=== PATIENT | male | born 1960 | race Two or more races ===

== ENCOUNTER 2024-04-12 17:34 | Inpatient (IN) | payer MEDICARE, MEDICAID ==
[~2024-04-12] VITALS: Ht 180.3 cm; Wt 108.9 kg
[2024-04-12] MEDS: DEXT 5%/0.45% NACL 1000ML 1,000 ML IV SCH (04:30)
[2024-04-12] MEDS: SODIUM CHLORIDE 0.9% 1,000 ML IV ONE (18:32)
[2024-04-12 18:46] LABS: BASOPHILS % 0.8 % (0.0-2.0); EOSINOPHILS % 0.4 % (0.0-5.0); HEMATOCRIT. 24.8 % (42.0-52.0); HEMOGLOBIN. 8.2 g/dL (14.0-18.0); LYMPHOCYTES % 24.3 % (20.0-50.0); MEAN CORPUSCULAR HEMOGLOBIN 31.4 pg (28.0-32.0); MEAN CORPUSCULAR VOLUME 95.4 fL (80.0-94.0); MEAN PLATELET VOLUME 10.9 fl (7.4-10.4); MONOCYTES % 8.2 % (2.0-8.0); NEUTROPHILS % 66.3 % (40.0-76.0); PLATELET 126 x1000/uL (130-400)
[2024-04-12 18:49] LABS: CHLORIDE 106 mEq/L (98-107); POTASSIUM 5.6 mEq/L (3.5-5.1); SODIUM 134 mEq/L (136-145)
[2024-04-12 18:50] LABS: CALCIUM 8.6 mg/dL (8.7-10.4); CARBON DIOXIDE 18 mEq/L (21-32)
[2024-04-12] MEDS: PANTOPRAZOLE SODIUM 40 MG/VIAL IV ONE (18:50)
[2024-04-12] MEDS: ONDANSETRON HCL 4MG/2ML INJ IV ONE (18:50)
[2024-04-12 18:55] LABS: CREATININE 0.9 mg/dL (0.6-1.3); GLUCOSE 341 mg/dL (70-105); TROPONIN I HIGH SENSITIVITY 6 ng/L (3.0-53); UREA NITROGEN BLOOD 37 mg/dL (9-23)
[2024-04-12 21:00] VITALS: BP 125/65; PULSE 96; RESP 19; TEMP 36.1956
[2024-04-12] MEDS ORDERED: ONDANSETRON HCL 4MG/2ML INJ IV PRN (21:15)
[2024-04-12] MEDS ORDERED: NA PHOS,M-B/NA PHOS,DI-BA ENEMA 118ML PR PRN (21:15)
[2024-04-12] MEDS ORDERED: SODIUM CHLORIDE 0.9% 500 ML IV SCH (21:15)
[2024-04-12] MEDS ORDERED: CLONIDINE 0.1MG TABLET PO PRN (21:15)
[2024-04-12] MEDS ORDERED: DOCUSATE SODIUM 100MG CAPSULE PO PRN (21:15)
[2024-04-12] MEDS ORDERED: LEVOFLOXACIN 500MG PREMIX 100 ML IV SCH (21:15)
[2024-04-12] MEDS ORDERED: ACETAMINOPHEN 325MG TABLET PO PRN ×2 (21:15)
[2024-04-12] MEDS ORDERED: DEXTROSE 50% WATER 50ML SYRINGE IV PRN (21:45)
[2024-04-12] MEDS ORDERED: NALOXONE HCL 0.4MG/ML VIAL IV PRN (22:00)
[2024-04-12] MEDS ORDERED: ALBUTEROL (0.083%) 2.5MG/3ML NEB HHN NR (22:15)
[2024-04-12] MEDS: BLOOD SUGAR DIAGNOSTIC STRIP TEST SCH (22:30)
[2024-04-13] VITALS (10 sets, daily range): BP systolic 91–150; BP diastolic 49–99; PULSE 96–127; RESP 16–26; TEMP 36.16956–37.11408; O2SAT 97–100
[2024-04-13] MEDS: SODIUM CHLORIDE 0.9% 1,000 ML IV ONE (01:44)
[2024-04-13] MEDS: SODIUM BICARBONATE 8.4% 50MEQ/50ML SYR IV NR (02:11)
[2024-04-13] MEDS: CALCIUM CHLORIDE 1GM/10ML SYR IV NR (02:20)
[2024-04-13] MEDS: SODIUM POLYSTYRENE SULFONATE 15 G/60 ML BOT PO NR (02:20)
[2024-04-13] MEDS: DEXTROSE 50% WATER 50ML SYRINGE IV NR (02:36)
[2024-04-13] MEDS: INSULIN REGULAR (HUMULIN R) 1000UNITS/10ML VIAL IV NR (04:46)
[2024-04-13] MEDS: INSULIN LISPRO 100 UNITS/ML SUBCUT SCH ×2 (05:13→09:38)
[2024-04-13 06:25] LABS: CHLORIDE 111 mEq/L (98-107); POTASSIUM 3.8 mEq/L (3.5-5.1); SODIUM 139 mEq/L (136-145)
[2024-04-13 06:26] LABS: CALCIUM 8.1 mg/dL (8.7-10.4); CARBON DIOXIDE 18 mEq/L (21-32)
[2024-04-13 06:31] LABS: CREATININE 0.9 mg/dL (0.6-1.3); GLUCOSE 309 mg/dL (70-105); UREA NITROGEN BLOOD 30 mg/dL (9-23)
[2024-04-13 07:34] LABS: BASOPHILS % 0.7 % (0.0-2.0); DIFFERENTIAL COMMENT 0; EOSINOPHILS % 3.1 % (0.0-5.0); LYMPHOCYTES % 35.4 % (20.0-50.0); MEAN CORPUSCULAR HEMOGLOBIN 32.7 pg (28.0-32.0); MEAN CORPUSCULAR HGB CONC 33.7 g/dL (31.0-37.0); MEAN CORPUSCULAR VOLUME 97.1 fL (80.0-94.0); MEAN PLATELET VOLUME 10.5 fl (7.4-10.4); NEUTROPHILS % 58.8 % (40.0-76.0); PLATELET 107 x1000/uL (130-400); RED CELL DISTRIBUTION WIDTH 16.4 % (11.6-14.6); WHITE BLOOD COUNT 7.8 x1000/uL (4.5-11.0)
[2024-04-13] MEDS: IPRATROPIUM/ALBUTEROL 0.5-3(2.5)MG/3ML NEB HHN SCH (08:38)
[2024-04-13 08:42] LABS: HEMATOCRIT. 20.4 % (42.0-52.0); HEMOGLOBIN. 6.9 g/dL (14.0-18.0)
[2024-04-13] MEDS: VANCOMYCIN 1GM/200ML PMX (BAXTER) IV SCH (09:36)
[2024-04-13] MEDS: INSULIN GLARGINE 100 UNITS/ML SUBCUT SCH ×2 (09:39→22:18)
[2024-04-13] MEDS: CEFTRIAXONE 1GM/50ML 50 ML IV SCH (09:59)
[2024-04-13] MEDS: PANTOPRAZOLE SODIUM 40 MG/VIAL IV SCH ×2 (09:59→22:20)
[2024-04-13] MEDS: INFLUENZA VACCINE 05/PF 0.5 ML SYRINGE IM ONE (10:00)
[2024-04-13] MEDS: AZITHROMYCIN 500MG/250ML 250 ML IV SCH (11:15)
[2024-04-13] MEDS: HYDROCODONE/ACETAMINOPHEN 5/325MG TABLET PO PRN (13:13)
[2024-04-13] MEDS: HALOPERIDOL LACTATE 5MG/ML VIAL IM NR ×2 (15:03→17:20)
[2024-04-13] MEDS ORDERED: OCTREOTIDE 1,000 MCG in SODIUM CHLORIDE 0.9% 98 ML IV SCH (16:00)
[2024-04-13] MEDS: DIPHENHYDRAMINE 50MG/ML VIAL IV NR (17:19)
[2024-04-13] MEDS: QUETIAPINE FUMARATE 200MG TABLET PO SCH (17:20)
[2024-04-13 18:38] LABS: ALANINE AMINOTRANSFERASE 81 IU/L (10-49); ALBUMIN 2.6 g/dL (3.2-4.8); ASPARTATE AMINOTRANSFERASE 133 IU/L (<34); BILIRUBIN DIRECT 1.4 mg/dL (<=3.0)
[2024-04-13 18:39] LABS: AMMONIA 71 uMol/L (<32); BILIRUBIN TOTAL 2.4 mg/dL (0.1-1.0); PROTEIN TOTAL 5.8 g/dL (6.0-8.3)
[2024-04-13 18:40] LABS: FOLIC ACID (FOLATE) SERUM > 20.00 ng/mL (>5.38)
[2024-04-13] MEDS: LACTULOSE 20G/30ML UDC PO SCH (22:00)
[2024-04-13] MEDS: GUAIFENESIN 200MG/10ML SUGAR FREE UDC PO PRN (23:21)
[2024-04-14] VITALS (11 sets, daily range): BP systolic 108–136; BP diastolic 68–84; PULSE 102–116; RESP 16–20; TEMP 36.33624–37.11408; O2SAT 98–100
[2024-04-14 08:15] LABS: INR 1.3; PROTHROMBIN TIME 14.5 sec (9.6-11.0)
[2024-04-14 08:35] LABS: CHLORIDE 111 mEq/L (98-107); POTASSIUM 3.4 mEq/L (3.5-5.1); SODIUM 140 mEq/L (136-145)
[2024-04-14 08:37] LABS: CALCIUM 7.8 mg/dL (8.7-10.4); CARBON DIOXIDE 22 mEq/L (21-32)
[2024-04-14 08:41] LABS: IRON 33 ug/dL (65-175)
[2024-04-14 08:42] LABS: CREATININE 0.8 mg/dL (0.6-1.3); GLUCOSE 194 mg/dL (70-105); UREA NITROGEN BLOOD 21 mg/dL (9-23)
[2024-04-14 08:43] LABS: ALANINE AMINOTRANSFERASE 66 IU/L (10-49); PROTEIN TOTAL 5.3 g/dL (6.0-8.3)
[2024-04-14 08:44] LABS: ALBUMIN 2.5 g/dL (3.2-4.8); ASPARTATE AMINOTRANSFERASE 107 IU/L (<34); BILIRUBIN TOTAL 2.3 mg/dL (0.1-1.0)
[2024-04-14 08:45] LABS: TOTAL IRON BINDING CAPACITY 247 ug/dl (250-425)
[2024-04-14 08:46] LABS: FERRITIN 99 ng/mL (22-322)
[2024-04-14 08:47] LABS: VITAMIN B12 SERUM 787 pg/mL (211-911)
[2024-04-14 09:03] LABS: BASOPHILS % 0.8 % (0.0-2.0); EOSINOPHILS % 4.9 % (0.0-5.0); HEMATOCRIT. 21.2 % (42.0-52.0); HEMOGLOBIN. 7.2 g/dL (14.0-18.0); LYMPHOCYTES % 26.8 % (20.0-50.0); MEAN CORPUSCULAR HEMOGLOBIN 31.6 pg (28.0-32.0); MEAN CORPUSCULAR HGB CONC 33.8 g/dL (31.0-37.0); MEAN CORPUSCULAR VOLUME 93.6 fL (80.0-94.0); MEAN PLATELET VOLUME 10.3 fl (7.4-10.4); MONOCYTES % 9.4 % (2.0-8.0); NEUTROPHILS % 58.1 % (40.0-76.0); PLATELET 93 x1000/uL (130-400); RED BLOOD CELL COUNT 2.27 mill/uL (4.7-6.1); RED CELL DISTRIBUTION WIDTH 15.8 % (11.6-14.6); WHITE BLOOD COUNT 6.1 x1000/uL (4.5-11.0)
[2024-04-14] MEDS: DIPHENHYDRAMINE 50MG/ML VIAL IV PRN (13:03)
[2024-04-14 19:02] LABS: HEMATOCRIT 25.9 % (42.0-52.0); HEMOGLOBIN 8.6 g/dL (14.0-18.0)
[2024-04-14 19:15] LABS: TRIGLYCERIDE 93 mg/dL (0-150)
[2024-04-14 19:16] LABS: LDL CHOLESTEROL 54 mg/dL (5-100)
[2024-04-14 19:17] LABS: CHOLESTEROL 98 mg/dL (<200); HDL CHOLESTEROL < 20 mg/dL (>55)
[2024-04-14] MEDS: QUETIAPINE FUMARATE 200MG TABLET PO SCH (21:00)
[2024-04-14] MEDS: QUETIAPINE FUMARATE 50MG TABLET PO SCH (21:00)
[2024-04-14 21:55] LABS: HEMOGLOBIN 8.7 g/dL (14.0-18.0)
[2024-04-15] VITALS: BP 130/84; PULSE 109; RESP 20; TEMP 36.33624; O2SAT 98
[2024-04-15 04:00] VITALS: BP 125/78; PULSE 86; RESP 20; TEMP 36.72516; O2SAT 96
[2024-04-15 06:35] LABS: CHLORIDE 113 mEq/L (98-107); POTASSIUM 3.5 mEq/L (3.5-5.1); SODIUM 141 mEq/L (136-145)
[2024-04-15 06:38] LABS: CARBON DIOXIDE 21 mEq/L (21-32)
[2024-04-15 06:39] LABS: CALCIUM 7.8 mg/dL (8.7-10.4)
[2024-04-15 06:43] LABS: CREATININE 0.7 mg/dL (0.6-1.3); GLUCOSE 98 mg/dL (70-105)
[2024-04-15 06:44] LABS: UREA NITROGEN BLOOD 14 mg/dL (9-23)
[2024-04-15 06:45] LABS: ALANINE AMINOTRANSFERASE 73 IU/L (10-49); ALBUMIN 2.5 g/dL (3.2-4.8); ASPARTATE AMINOTRANSFERASE 127 IU/L (<34)
[2024-04-15 06:46] LABS: BILIRUBIN TOTAL 2.3 mg/dL (0.1-1.0); PROTEIN TOTAL 5.4 g/dL (6.0-8.3)
[2024-04-15 07:40] LABS: BASOPHILS % 0.6 % (0.0-2.0); EOSINOPHILS % 8.5 % (0.0-5.0); HEMATOCRIT. 23.8 % (42.0-52.0); HEMOGLOBIN. 8.1 g/dL (14.0-18.0); LYMPHOCYTES % 29.4 % (20.0-50.0); MEAN CORPUSCULAR VOLUME 94.1 fL (80.0-94.0); MONOCYTES % 8.5 % (2.0-8.0); PLATELET 94 x1000/uL (130-400); RED BLOOD CELL COUNT 2.53 mill/uL (4.7-6.1); RED CELL DISTRIBUTION WIDTH 15.6 % (11.6-14.6); WHITE BLOOD COUNT 5.9 x1000/uL (4.5-11.0)
[2024-04-15 08:00] VITALS: BP 119/75; PULSE 97; RESP 18; TEMP 36.33624; O2SAT 98
[2024-04-15] MEDS: IOHEXOL-300 100 ML BOTTLE ONE (08:37)
[2024-04-15] MEDS: GABAPENTIN 300MG CAPSULE PO SCH (10:16)
[2024-04-15 12:00] VITALS: BP 112/74; PULSE 97; RESP 18; TEMP 36.33624; O2SAT 99
[2024-04-15] MEDS: AZITHROMYCIN 500MG/250ML 250 ML IV SCH (12:00)
[2024-04-15] MEDS: HALOPERIDOL LACTATE 5MG/ML VIAL IM NR (14:00)
[2024-04-15] MEDS ORDERED: GABAPENTIN 300MG CAPSULE PO SCH (14:00)
[2024-04-15 16:00] VITALS: BP 109/59; PULSE 92; RESP 18; TEMP 36.33624; O2SAT 98
[2024-04-15 20:05] VITALS: BP 107/69; PULSE 99; RESP 16; TEMP 36.50292; O2SAT 100
[2024-04-16] VITALS (7 sets, daily range): BP systolic 98–127; BP diastolic 48–85; PULSE 87–97; RESP 16–20; TEMP 36.16956–36.6696; O2SAT 93–99
[2024-04-16 06:03] LABS: INR 1.2; PROTHROMBIN TIME 13.2 sec (9.6-11.0)
[2024-04-16 06:05] LABS: BASOPHILS % 0.8 % (0.0-2.0); EOSINOPHILS % 10.9 % (0.0-5.0); HEMATOCRIT. 25.2 % (42.0-52.0); HEMOGLOBIN. 8.5 g/dL (14.0-18.0); LYMPHOCYTES % 33.3 % (20.0-50.0); MEAN CORPUSCULAR HEMOGLOBIN 31.9 pg (28.0-32.0); MEAN CORPUSCULAR HGB CONC 33.8 g/dL (31.0-37.0); MEAN CORPUSCULAR VOLUME 94.5 fL (80.0-94.0); MEAN PLATELET VOLUME 10.4 fl (7.4-10.4); MONOCYTES % 10.6 % (2.0-8.0); NEUTROPHILS % 44.4 % (40.0-76.0); PLATELET 89 x1000/uL (130-400); RED BLOOD CELL COUNT 2.67 mill/uL (4.7-6.1); RED CELL DISTRIBUTION WIDTH 15.6 % (11.6-14.6); WHITE BLOOD COUNT 4.9 x1000/uL (4.5-11.0)
[2024-04-16 06:18] LABS: CHLORIDE 113 mEq/L (98-107); POTASSIUM 3.6 mEq/L (3.5-5.1); SODIUM 141 mEq/L (136-145)
[2024-04-16 06:19] LABS: CARBON DIOXIDE 20 mEq/L (21-32)
[2024-04-16 06:20] LABS: CALCIUM 7.9 mg/dL (8.7-10.4)
[2024-04-16 06:24] LABS: CREATININE 0.7 mg/dL (0.6-1.3); GLUCOSE 115 mg/dL (70-105)
[2024-04-16 06:25] LABS: UREA NITROGEN BLOOD 11 mg/dL (9-23)
[2024-04-16 06:26] LABS: ALANINE AMINOTRANSFERASE 69 IU/L (10-49); ALBUMIN 2.5 g/dL (3.2-4.8); ASPARTATE AMINOTRANSFERASE 116 IU/L (<34)
[2024-04-16 06:27] LABS: BILIRUBIN TOTAL 1.8 mg/dL (0.1-1.0); PROTEIN TOTAL 5.5 g/dL (6.0-8.3)
[2024-04-16] MEDS ORDERED: HALOPERIDOL LACTATE 5MG/ML VIAL IM PRN (09:00)
[2024-04-16 09:10] LABS: CLARITY URINE CLEAR (CLEAR); COLOR URINE DARK YELLOW (YELLOW); GLUCOSE URINE TRACE (NEGATIVE); KETONES URINE NEGATIVE (NEGATIVE); LEUKOCYTE ESTERASE URINE NEGATIVE (NEGATIVE); NITRITE URINE NEGATIVE (NEGATIVE); OCCULT BLOOD URINE NEGATIVE (NEGATIVE); PH URINE 6.5 (4.5-8.0); PROTEIN URINE NEGATIVE (NEGATIVE); SPECIFIC GRAVITY URINE 1.007 (1.005-1.030)
[2024-04-16 09:44] LABS: BACTERIA URINE NONE SEEN; RBC URINE NONE SEEN /hpf (0-2); SQUAMOUS EPITHELIAL CELL URINE NONE SEEN /lpf (RARE/1+); WBC URINE 0-2 /hpf (0-2); YEAST URINE NONE SEEN
[2024-04-16] MEDS ORDERED: EPHEDRINE SULFATE 50MG/ML VIAL ONE (13:16)
[2024-04-16] MEDS ORDERED: PROPOFOL 200MG/20ML VIAL IV ONE ×2 (13:16→13:43)
[2024-04-16] MEDS ORDERED: HYDROMORPHONE HCL/PF 1MG/ML INJ IV PRN (14:30)
[2024-04-16] MEDS ORDERED: ONDANSETRON HCL 4MG/2ML INJ IV PRN (14:30)
[2024-04-16] MEDS: PNEUMOCOCCAL 20-VAL CONJ-DIP CRM 0.5ML IM ONE (16:33)
[2024-04-16] MEDS: SUCRALFATE 1G TABLET PO SCH (16:41)
[2024-04-16] MEDS: CARVEDILOL 3.125 MG TABLET PO SCH (21:56)
[2024-04-17] VITALS (9 sets, daily range): BP systolic 92–122; BP diastolic 60–80; PULSE 82–94; RESP 16–20; TEMP 36.55848–37.2; O2SAT 97–100
[2024-04-17 07:12] LABS: CHLORIDE 110 mEq/L (98-107); POTASSIUM 3.8 mEq/L (3.5-5.1); SODIUM 138 mEq/L (136-145)
[2024-04-17 07:13] LABS: CARBON DIOXIDE 21 mEq/L (21-32)
[2024-04-17 07:18] LABS: CREATININE 0.7 mg/dL (0.6-1.3); GLUCOSE 159 mg/dL (70-105); UREA NITROGEN BLOOD 9 mg/dL (9-23)
[2024-04-17 07:20] LABS: ALANINE AMINOTRANSFERASE 65 IU/L (10-49); ALBUMIN 2.6 g/dL (3.2-4.8); ASPARTATE AMINOTRANSFERASE 105 IU/L (<34)
[2024-04-17 07:21] LABS: BILIRUBIN TOTAL 1.6 mg/dL (0.1-1.0); PROTEIN TOTAL 5.7 g/dL (6.0-8.3)
[2024-04-17 07:31] LABS: HEPATITIS B SURFACE ANTIGEN NEGATIVE (Negative)
[2024-04-17 07:52] LABS: HEPATITIS A AB IGM NEGATIVE (Negative)
[2024-04-17 07:53] LABS: HEPATITIS B CORE AB IGM NEGATIVE (Negative); HEPATITIS C AB REACTIVE (Pos) (Negative)
[2024-04-17 08:11] LABS: BASOPHILS % 1.2 % (0.0-2.0); EOSINOPHILS % 10.4 % (0.0-5.0); HEMATOCRIT. 27.7 % (42.0-52.0); HEMOGLOBIN. 9.2 g/dL (14.0-18.0); LYMPHOCYTES % 29.1 % (20.0-50.0); MEAN CORPUSCULAR HEMOGLOBIN 32.1 pg (28.0-32.0); MEAN CORPUSCULAR HGB CONC 33.2 g/dL (31.0-37.0); MEAN CORPUSCULAR VOLUME 96.8 fL (80.0-94.0); MEAN PLATELET VOLUME 10.3 fl (7.4-10.4); MONOCYTES % 9.1 % (2.0-8.0); NEUTROPHILS % 50.2 % (40.0-76.0); PLATELET 97 x1000/uL (130-400); RED BLOOD CELL COUNT 2.86 mill/uL (4.7-6.1); RED CELL DISTRIBUTION WIDTH 16.2 % (11.6-14.6); WHITE BLOOD COUNT 4.5 x1000/uL (4.5-11.0)
[2024-04-17] MEDS ORDERED: COR3 PO (13:37)
[2024-04-17] MEDS ORDERED: OMEP20CA14 MT (13:37)
[2024-04-17] MEDS ORDERED: GABA-1180 PO (13:37)
[2024-04-17] MEDS ORDERED: QUET200T30 PO (13:37)
[2024-04-17] MEDS ORDERED: QUET50TA PO (13:37)
[2024-04-17] MEDS ORDERED: SUCR1TAB PO (13:37)
[2024-04-18] VITALS (7 sets, daily range): BP systolic 94–126; BP diastolic 52–78; PULSE 80–92; RESP 18–20; TEMP 36.4–36.9; O2SAT 94–100
== END 2024-04-18 18:00 | DRG 871 ==
LOC: ER 17:34 → 5WST 19:19 → EDBEDREQTM 19:45 → EDBEDREQ 19:45 → 5WST 04-13 15:00
PROVIDERS: ADMIT Hospitalist; ATTEND Hospitalist
PROC: 30233N1 Transfusion of Nonautologous Red Blood Cells into Peripheral Vein, Percutaneous Approach (ICD-10-PCS; principal; 2024-04-13)
PROC: 0DB78ZX Excision of Stomach, Pylorus, Via Natural or Artificial Opening Endoscopic, Diagnostic (ICD-10-PCS; 2024-04-16)
PROC: 06L38CZ Occlusion of Esophageal Vein with Extraluminal Device, Via Natural or Artificial Opening Endoscopic (ICD-10-PCS; 2024-04-16)
DX: A41.9 Sepsis, unspecified organism (principal); J18.9 Pneumonia, unspecified organism; K29.31 Chronic superficial gastritis with bleeding; D62 Acute posthemorrhagic anemia; E87.1 Hypo-osmolality and hyponatremia; E46 Unspecified protein-calorie malnutrition; I85.10 Secondary esophageal varices without bleeding; K76.6 Portal hypertension; I11.0 Hypertensive heart disease with heart failure; K59.00 Constipation, unspecified; I50.9 Heart failure, unspecified; F20.9 Schizophrenia, unspecified; E11.51 Type 2 diabetes mellitus with diabetic peripheral angiopathy without gangrene; E87.5 Hyperkalemia; D53.9 Nutritional anemia, unspecified; D69.6 Thrombocytopenia, unspecified; B19.20 Unspecified viral hepatitis C without hepatic coma; D63.8 Anemia in other chronic diseases classified elsewhere; K31.89 Other diseases of stomach and duodenum; K74.60 Unspecified cirrhosis of liver; Z96.642 Presence of left artificial hip joint; E11.65 Type 2 diabetes mellitus with hyperglycemia; E80.6 Other disorders of bilirubin metabolism; Z68.33 Body mass index [BMI] 33.0-33.9, adult; Z78.1 Physical restraint status; Z79.4 Long term (current) use of insulin; Z87.11 Personal history of peptic ulcer disease; Z79.899 Other long term (current) drug therapy; Z87.311 Personal history of (healed) other pathological fracture; Z88.8 Allergy status to other drugs, medicaments and biological substances
CPT/HCPCS: 36415; 71045; 74177; 76700; 80048; 80053; 80061; 80076; 81003; 82140; 82607; 82728; 82746; 82962; 83036; 83540; 83550; 83605; 83735; 83880; 84100; 84145; 84484; 85014; 85018; 85025; 85044; 86705; 86709; 86850; 86900; 86920; 87340; 88305; 88312; 88313; 90732; 93005; 94070; 94640; 94664; 97166; 98960; 99285; A4606; A4663; J0456; J0696; J1200; J1630; J1815; J2354; J2405; J2470; J2704; J3490; J7030; J7050; P9016; Q9967

== ENCOUNTER 2024-07-09 23:34 | Inpatient (IN) | payer MEDICARE, MEDICAID ==
[~2024-07-09] VITALS: Ht 182.9 cm; Wt 118.0 kg
[~2024-07-09 23:34] MED LIST: COR3 PO; GABA-1180 PO; OMEP20CA14 MT; QUET200T30 PO; SUCR1TAB PO
[2024-07-10] MEDS: SODIUM CHLORIDE 0.9% 1,000 ML IV ONE ×2 (00:12→05:14)
[2024-07-10] MEDS: PIPERACILLIN/TAZO 3.375G/50ML 50 ML IV ONE (00:14)
[2024-07-10 00:20] LABS: BASOPHILS % 1.5 % (0.0-2.0); EOSINOPHILS % 0.2 % (0.0-5.0); HEMATOCRIT. 25.4 % (42.0-52.0); HEMOGLOBIN. 7.9 g/dL (14.0-18.0); LYMPHOCYTES % 15.4 % (20.0-50.0); MEAN CORPUSCULAR HEMOGLOBIN 19.9 pg (28.0-32.0); MEAN CORPUSCULAR HGB CONC 31.3 g/dL (31.0-37.0); MEAN CORPUSCULAR VOLUME 63.6 fL (80.0-94.0); MEAN PLATELET VOLUME 9.2 fl (7.4-10.4); MONOCYTES % 8.9 % (2.0-8.0); PLATELET 156 x1000/uL (130-400); RED BLOOD CELL COUNT 3.99 mill/uL (4.7-6.1); RED CELL DISTRIBUTION WIDTH 22.6 % (11.6-14.6); WHITE BLOOD COUNT 12.6 x1000/uL (4.5-11.0)
[2024-07-10] MEDS: ACETAMINOPHEN 1000MG/100ML 100 ML IV ONE (00:21)
[2024-07-10 00:25] LABS: DIFFERENTIAL COMMENT 1
[2024-07-10 00:26] LABS: ADD RBC MORPHOLOGY YES
[2024-07-10 00:33] LABS: INR 1.3
[2024-07-10 00:48] LABS: CHLORIDE 101 mEq/L (98-107); POTASSIUM 4.1 mEq/L (3.5-5.1); SODIUM 127 mEq/L (136-145)
[2024-07-10 00:49] LABS: CARBON DIOXIDE 20 mEq/L (21-32)
[2024-07-10 00:50] LABS: CALCIUM 8.2 mg/dL (8.7-10.4)
[2024-07-10 00:54] LABS: CREATININE 0.9 mg/dL (0.6-1.3); GLUCOSE 275 mg/dL (70-105); UREA NITROGEN BLOOD 12 mg/dL (9-23)
[2024-07-10 00:56] LABS: ALANINE AMINOTRANSFERASE 40 IU/L (10-49); ALBUMIN 2.8 g/dL (3.2-4.8); ASPARTATE AMINOTRANSFERASE 65 IU/L (<34)
[2024-07-10 00:57] LABS: BILIRUBIN DIRECT 1.2 mg/dL (<=3.0); BILIRUBIN TOTAL 2.1 mg/dL (0.1-1.0); PROTEIN TOTAL 7.1 g/dL (6.0-8.3)
[2024-07-10 01:17] LABS: TROPONIN I HIGH SENSITIVITY < 4 ng/L (3.0-53)
[2024-07-10 01:23] LABS: LACTIC ACID 3.7 mmol/L (0.4-2.0)
[2024-07-10] MEDS: VANCOMYCIN 1G PREMIX 200 ML IV ONE (01:25)
[2024-07-10 01:40] LABS: BETA HYDROXYBUTYRATE 0.1 mMol/L (0.0-0.3)
[2024-07-10 02:29] LABS: INFLUENZA TYPE A Presumptive Negative (Pres. Neg.)
[2024-07-10 02:30] LABS: INFLUENZA TYPE B Presumptive Negative (Pres. Neg.)
[2024-07-10 02:32] LABS: RESPIRATORY SYNCYTIAL VIRUS Not Detected (Not Detectd)
[2024-07-10 03:10] LABS: CLARITY URINE CLEAR (CLEAR); COLOR URINE DARK YELLOW (YELLOW); GLUCOSE URINE 1+ (NEGATIVE); KETONES URINE TRACE (NEGATIVE); LEUKOCYTE ESTERASE URINE 2+ (NEGATIVE); NITRITE URINE POSITIVE (NEGATIVE); OCCULT BLOOD URINE TRACE (NEGATIVE); PROTEIN URINE 2+ (NEGATIVE); SPECIFIC GRAVITY URINE 1.021 (1.005-1.030)
[2024-07-10] MEDS ORDERED: ONDANSETRON HCL 4MG/2ML INJ IV PRN (03:30)
[2024-07-10] MEDS ORDERED: CLONIDINE 0.1MG TABLET PO PRN (03:30)
[2024-07-10] MEDS ORDERED: GUAIFENESIN 200MG/10ML SUGAR FREE UDC PO PRN (03:30)
[2024-07-10] MEDS ORDERED: IPRATROPIUM/ALBUTEROL 0.5-3(2.5)MG/3ML NEB HHN PRN (03:30)
[2024-07-10 03:41] LABS: HYPOCHROMASIA 1+; MICROCYTOSIS 2+; PLATELET ESTIMATE NORMAL
[2024-07-10] MEDS ORDERED: DEXTROSE 50% WATER 50ML SYRINGE IV PRN (03:45)
[2024-07-10 04:00] VITALS: BP 105/61; PULSE 79; RESP 20; TEMP 36.7; O2SAT 100
[2024-07-10 04:50] LABS: *AMPHETAMINES SCREEN URINE NEGATIVE (NEGATIVE); *BARBITURATES SCREEN URINE NEGATIVE (NEGATIVE); *BENZODIAZEPINES SCREEN URINE NEGATIVE (NEGATIVE); *COCAINE SCREEN URINE NEGATIVE (NEGATIVE); CANNABINOID URINE SCREEN NEGATIVE (NEGATIVE); ECSTASY MDMA SCREEN URINE NEGATIVE (NEGATIVE); METHADONE URINE SCREEN NEGATIVE (NEGATIVE); OPIATES URINE SCREEN NEGATIVE (NEGATIVE); PHENCYCLIDINE URINE SCREEN NEGATIVE (NEGATIVE)
[2024-07-10 04:50] LABS: SQUAMOUS EPITHELIAL CELL URINE FEW /lpf (RARE/1+)
[2024-07-10 04:51] LABS: WBC URINE 15-25 /hpf (0-2)
[2024-07-10 04:52] LABS: RBC URINE 0-2 /hpf (0-2)
[2024-07-10 04:53] LABS: BACTERIA URINE 1+
[2024-07-10] MEDS: PANTOPRAZOLE SODIUM 40 MG/VIAL IV SCH (05:00)
[2024-07-10] MEDS: LORAZEPAM 0.5MG TABLET PO PRN (05:00)
[2024-07-10] MEDS: QUETIAPINE FUMARATE 50MG TABLET PO SCH (05:00)
[2024-07-10] MEDS: AZITHROMYCIN 500 MG TABLET PO SCH (05:00)
[2024-07-10 05:53] VITALS: BP 105/61; PULSE 79; RESP 20; TEMP 36.7
[2024-07-10] MEDS: LACTULOSE 20G/30ML UDC PO SCH (06:30)
[2024-07-10] MEDS: INSULIN LISPRO 100 UNITS/ML SUBCUT SCH ×3 (06:49→19:12)
[2024-07-10] MEDS: BLOOD SUGAR DIAGNOSTIC STRIP TEST SCH (06:49)
[2024-07-10 08:00] VITALS: BP 134/70; PULSE 87; RESP 20; TEMP 36.7; O2SAT 95
[2024-07-10 09:10] LABS: BASOPHILS % 1.4 % (0.0-2.0); EOSINOPHILS % 0.2 % (0.0-5.0); HEMATOCRIT. 24.5 % (42.0-52.0); HEMOGLOBIN. 7.5 g/dL (14.0-18.0); LYMPHOCYTES % 15.4 % (20.0-50.0); MEAN CORPUSCULAR HGB CONC 30.7 g/dL (31.0-37.0); MEAN CORPUSCULAR VOLUME 65.1 fL (80.0-94.0); MEAN PLATELET VOLUME 9.2 fl (7.4-10.4); MONOCYTES % 11.7 % (2.0-8.0); NEUTROPHILS % 71.3 % (40.0-76.0); PLATELET 128 x1000/uL (130-400); RED BLOOD CELL COUNT 3.76 mill/uL (4.7-6.1); RED CELL DISTRIBUTION WIDTH 21.5 % (11.6-14.6); WHITE BLOOD COUNT 10.4 x1000/uL (4.5-11.0)
[2024-07-10 09:11] LABS: LACTIC ACID 2.6 mmol/L (0.4-2.0)
[2024-07-10 09:17] LABS: ADD RBC MORPHOLOGY NO; DIFFERENTIAL COMMENT 1
[2024-07-10] MEDS: SUCRALFATE 1G TABLET PO SCH (09:22)
[2024-07-10] MEDS: FERROUS SULFATE 325MG TABLET PO SCH ×2 (09:22→19:05)
[2024-07-10] MEDS: ACETAMINOPHEN 325MG TABLET PO PRN (09:23)
[2024-07-10 09:48] LABS: CARBON DIOXIDE 20 mEq/L (21-32); CHLORIDE 106 mEq/L (98-107); POTASSIUM 3.9 mEq/L (3.5-5.1); SODIUM 130 mEq/L (136-145)
[2024-07-10 09:53] LABS: CREATININE 0.8 mg/dL (0.6-1.3)
[2024-07-10 09:54] LABS: GLUCOSE 284 mg/dL (70-105); TRIGLYCERIDE 71 mg/dL (0-150); UREA NITROGEN BLOOD 12 mg/dL (9-23)
[2024-07-10 09:55] LABS: ALANINE AMINOTRANSFERASE 36 IU/L (10-49); ALBUMIN 2.6 g/dL (3.2-4.8); ASPARTATE AMINOTRANSFERASE 60 IU/L (<34); CHOLESTEROL 81 mg/dL (<200); LDL CHOLESTEROL 43 mg/dL (5-100)
[2024-07-10 09:56] LABS: BILIRUBIN DIRECT 1.3 mg/dL (<=3.0); BILIRUBIN TOTAL 2.1 mg/dL (0.1-1.0); HDL CHOLESTEROL < 20 mg/dL (>55); PHOSPHORUS 2.7 mg/dL (2.5-4.9); PROTEIN TOTAL 6.6 g/dL (6.0-8.3)
[2024-07-10 09:58] LABS: T4 FREE 1.07 ng/dL (0.89-1.76); THYROID STIMULATING HORMONE 1.39 uIU/mL (0.55-4.78)
[2024-07-10] MEDS: VANCOMYCIN 1.25GM/250ML 250 ML IV SCH (10:00)
[2024-07-10] MEDS: PIPERACILLIN/TAZO 3.375G/50ML 50 ML IV SCH (10:16)
[2024-07-10 12:00] VITALS: BP 119/72; PULSE 89; RESP 20; TEMP 37.6; O2SAT 100
[2024-07-10 16:00] VITALS: BP 116/57; PULSE 87; RESP 18; TEMP 38.3; O2SAT 100
[2024-07-10] MEDS: MAGNESIUM 2 G PREMIX 50 ML IV NR (16:44)
[2024-07-10] MEDS ORDERED: ASCORBIC ACID 250 MG TABLET PO SCH (17:00)
[2024-07-10 18:29] LABS: AMMONIA 61 uMol/L (<32)
[2024-07-10] MEDS: ASCORBIC ACID 250 MG TABLET PO SCH (19:05)
[2024-07-10 20:00] VITALS: BP 116/63; PULSE 91; RESP 22; TEMP 36.6; O2SAT 96
[2024-07-10] MEDS ORDERED: INSULIN GLARGINE 100 UNITS/ML SUBCUT SCH (22:00)
[2024-07-10] MEDS: INSULIN GLARGINE 100 UNITS/ML SUBCUT SCH (22:04)
[2024-07-10] MEDS: ATORVASTATIN CALCIUM 40MG TABLET PO SCH (22:04)
[2024-07-10 22:17] LABS: HEMATOCRIT 24.9 % (42.0-52.0); HEMOGLOBIN 7.6 g/dL (14.0-18.0)
[2024-07-11] VITALS: BP 121/69; PULSE 88; RESP 20; TEMP 36.2; O2SAT 97
[2024-07-11 04:00] VITALS: BP 106/61; PULSE 99; RESP 22; TEMP 37.1; O2SAT 97
[2024-07-11 08:00] VITALS: BP 99/51; PULSE 98; RESP 18; TEMP 36.2; O2SAT 98
[2024-07-11] MEDS: RIFAXIMIN 550 MG TABLET PO SCH (09:08)
[2024-07-11] MEDS: ENOXAPARIN 30MG/0.3ML SYR SUBCUT SCH (10:50)
[2024-07-11] MEDS: VANCOMYCIN 1.5GM/250ML 250 ML IV SCH (13:44)
[2024-07-11 14:09] LABS: EOSINOPHILS % 0.8 % (0.0-5.0); HEMATOCRIT. 24.1 % (42.0-52.0); HEMOGLOBIN. 7.5 g/dL (14.0-18.0); LYMPHOCYTES % 16.7 % (20.0-50.0); MEAN CORPUSCULAR HEMOGLOBIN 19.9 pg (28.0-32.0); MEAN CORPUSCULAR HGB CONC 31.1 g/dL (31.0-37.0); MEAN PLATELET VOLUME 9.1 fl (7.4-10.4); MONOCYTES % 13.3 % (2.0-8.0); NEUTROPHILS % 68.2 % (40.0-76.0); PLATELET 171 x1000/uL (130-400); RED BLOOD CELL COUNT 3.77 mill/uL (4.7-6.1); RED CELL DISTRIBUTION WIDTH 21.7 % (11.6-14.6); WHITE BLOOD COUNT 8.8 x1000/uL (4.5-11.0)
[2024-07-11 14:18] LABS: DIFFERENTIAL COMMENT 1
[2024-07-11 14:42] LABS: CHLORIDE 105 mEq/L (98-107)
[2024-07-11 14:43] LABS: POTASSIUM 3.8 mEq/L (3.5-5.1); SODIUM 133 mEq/L (136-145)
[2024-07-11 14:44] LABS: CALCIUM 7.9 mg/dL (8.7-10.4); CARBON DIOXIDE 24 mEq/L (21-32)
[2024-07-11 14:49] LABS: CREATININE 0.7 mg/dL (0.6-1.3); GLUCOSE 237 mg/dL (70-105); UREA NITROGEN BLOOD 11 mg/dL (9-23)
[2024-07-11 18:24] LABS: CLARITY URINE TURBID (CLEAR); COLOR URINE DARK YELLOW (YELLOW); GLUCOSE URINE 3+ (NEGATIVE); KETONES URINE TRACE (NEGATIVE); LEUKOCYTE ESTERASE URINE 2+ (NEGATIVE); NITRITE URINE NEGATIVE (NEGATIVE); OCCULT BLOOD URINE 2+ (NEGATIVE); PROTEIN URINE 1+ (NEGATIVE); SPECIFIC GRAVITY URINE 1.036 (1.005-1.030)
[2024-07-11 18:27] LABS: BACTERIA URINE 1+; SQUAMOUS EPITHELIAL CELL URINE RARE /lpf (RARE/1+)
[2024-07-11] MEDS: CARVEDILOL 3.125 MG TABLET PO SCH (21:00)
[2024-07-11] MEDS: PANTOPRAZOLE SODIUM 40 MG/VIAL IV SCH (21:00)
[2024-07-11] MEDS: VANCOMYCIN 1.25GM/250ML 250 ML IV SCH (21:27)
[2024-07-12] VITALS: BP 138/63; PULSE 112; RESP 22; TEMP 36.8; O2SAT 100
[2024-07-12 04:00] VITALS: BP 117/68; PULSE 101; RESP 18; TEMP 36.2; O2SAT 96
[2024-07-12 06:59] LABS: AMMONIA 71 uMol/L (<32)
[2024-07-12 07:04] LABS: BASOPHILS % 0.6 % (0.0-2.0); EOSINOPHILS % 0.7 % (0.0-5.0); HEMATOCRIT. 23.9 % (42.0-52.0); HEMOGLOBIN. 7.3 g/dL (14.0-18.0); MEAN CORPUSCULAR HEMOGLOBIN 19.3 pg (28.0-32.0); MEAN CORPUSCULAR HGB CONC 30.5 g/dL (31.0-37.0); MEAN CORPUSCULAR VOLUME 63.3 fL (80.0-94.0); MONOCYTES % 11.1 % (2.0-8.0); NEUTROPHILS % 67.6 % (40.0-76.0); PLATELET 168 x1000/uL (130-400); RED BLOOD CELL COUNT 3.77 mill/uL (4.7-6.1); WHITE BLOOD COUNT 7.7 x1000/uL (4.5-11.0)
[2024-07-12 07:09] LABS: DIFFERENTIAL COMMENT 1
[2024-07-12 07:10] LABS: ADD RBC MORPHOLOGY NO
[2024-07-12 07:35] LABS: CHLORIDE 104 mEq/L (98-107); POTASSIUM 3.8 mEq/L (3.5-5.1); SODIUM 133 mEq/L (136-145)
[2024-07-12 07:36] LABS: CALCIUM 7.3 mg/dL (8.7-10.4); CARBON DIOXIDE 21 mEq/L (21-32)
[2024-07-12 07:41] LABS: CREATININE 0.7 mg/dL (0.6-1.3); GLUCOSE 219 mg/dL (70-105); UREA NITROGEN BLOOD 12 mg/dL (9-23)
[2024-07-12 07:43] LABS: ALANINE AMINOTRANSFERASE 28 IU/L (10-49); ALBUMIN 2.4 g/dL (3.2-4.8); ASPARTATE AMINOTRANSFERASE 51 IU/L (<34); BILIRUBIN DIRECT 0.8 mg/dL (<=3.0); BILIRUBIN TOTAL 1.4 mg/dL (0.1-1.0); TOTAL IRON BINDING CAPACITY 363 ug/dl (250-425)
[2024-07-12 07:44] LABS: PROTEIN TOTAL 6.4 g/dL (6.0-8.3)
[2024-07-12 08:00] VITALS: BP 111/61; PULSE 98; RESP 18; TEMP 37.6; O2SAT 97
[2024-07-12 08:34] LABS: IRON 14 ug/dL (65-175)
[2024-07-12 09:26] LABS: HEPATITIS B SURFACE ANTIGEN NEGATIVE (Negative)
[2024-07-12 09:47] LABS: HEPATITIS A AB IGM NEGATIVE (Negative); HEPATITIS B CORE AB IGM NEGATIVE (Negative)
[2024-07-12 10:10] LABS: HEPATITIS C AB REACTIVE (Pos) (Negative)
[2024-07-12] MEDS ORDERED: NON FORMULARY MED XX SCH (11:00)
[2024-07-12 12:00] VITALS: BP 135/77; PULSE 91; RESP 18; TEMP 37.3; O2SAT 96
[2024-07-12] MEDS: IRON SUCROSE COMPLEX 100 MG/5 ML ML IV SCH (13:00)
[2024-07-12 20:00] VITALS: BP 83/68; PULSE 92; RESP 18; TEMP 36.2; O2SAT 98
[2024-07-12] MEDS: MUPIROCIN 2% OINT 22GM NS SCH (20:59)
[2024-07-12 22:09] LABS: HEMATOCRIT 23.6 % (42.0-52.0); HEMOGLOBIN 7.1 g/dL (14.0-18.0)
[2024-07-13] VITALS (9 sets, daily range): BP systolic 102–134; BP diastolic 59–84; PULSE 60–89; RESP 17–20; TEMP 36.2–37; O2SAT 96–100
[2024-07-13 04:35] LABS: INR 1.3
[2024-07-13 04:43] LABS: BASOPHILS % 0.4 % (0.0-2.0); EOSINOPHILS % 0.9 % (0.0-5.0); HEMATOCRIT. 22.3 % (42.0-52.0); MEAN CORPUSCULAR HGB CONC 31.2 g/dL (31.0-37.0); MEAN CORPUSCULAR VOLUME 64.2 fL (80.0-94.0); MEAN PLATELET VOLUME 9.1 fl (7.4-10.4); MONOCYTES % 12.7 % (2.0-8.0); PLATELET 165 x1000/uL (130-400); RED BLOOD CELL COUNT 3.48 mill/uL (4.7-6.1); RED CELL DISTRIBUTION WIDTH 21.8 % (11.6-14.6); WHITE BLOOD COUNT 8.9 x1000/uL (4.5-11.0)
[2024-07-13 04:52] LABS: CHLORIDE 102 mEq/L (98-107); POTASSIUM 3.8 mEq/L (3.5-5.1); SODIUM 130 mEq/L (136-145)
[2024-07-13 04:53] LABS: CALCIUM 7.4 mg/dL (8.7-10.4); CARBON DIOXIDE 20 mEq/L (21-32)
[2024-07-13 04:58] LABS: CREATININE 0.8 mg/dL (0.6-1.3); GLUCOSE 240 mg/dL (70-105); UREA NITROGEN BLOOD 14 mg/dL (9-23)
[2024-07-13 05:05] LABS: DIFFERENTIAL COMMENT 1
[2024-07-13] MEDS ORDERED: MEPERIDINE HCL/PF 25MG/ML CPJ IV PRN (13:30)
[2024-07-13] MEDS ORDERED: HYDROMORPHONE HCL/PF 1MG/ML INJ IV PRN (13:30)
[2024-07-13] MEDS ORDERED: LABETALOL 5MG/ML 4ML INJ IV PRN (13:30)
[2024-07-13] MEDS ORDERED: ONDANSETRON HCL 4MG/2ML INJ IV PRN (13:30)
[2024-07-14 08:00] VITALS: BP 98/57; PULSE 110; RESP 18; TEMP 36.2; O2SAT 98
[2024-07-14 12:00] VITALS: BP 101/56; PULSE 87; RESP 18; TEMP 36.4; O2SAT 98
[2024-07-14] MEDS: LEVOFLOXACIN 250MG TABLET PO SCH (12:00)
[2024-07-14 16:00] VITALS: BP 114/81; PULSE 84; RESP 17; TEMP 35.8; O2SAT 98
[2024-07-14 17:35] LABS: BASOPHILS % 1.3 % (0.0-2.0); EOSINOPHILS % 0.9 % (0.0-5.0); HEMATOCRIT. 26.1 % (42.0-52.0); HEMOGLOBIN. 8.1 g/dL (14.0-18.0); LYMPHOCYTES % 16.2 % (20.0-50.0); MEAN CORPUSCULAR HEMOGLOBIN 20.3 pg (28.0-32.0); MEAN CORPUSCULAR HGB CONC 31.2 g/dL (31.0-37.0); MEAN PLATELET VOLUME 8.6 fl (7.4-10.4); NEUTROPHILS % 69.6 % (40.0-76.0); PLATELET 201 x1000/uL (130-400); RED BLOOD CELL COUNT 4.01 mill/uL (4.7-6.1); RED CELL DISTRIBUTION WIDTH 23.2 % (11.6-14.6); WHITE BLOOD COUNT 7.6 x1000/uL (4.5-11.0)
[2024-07-14 17:38] LABS: CHLORIDE 103 mEq/L (98-107); POTASSIUM 3.6 mEq/L (3.5-5.1); SODIUM 133 mEq/L (136-145)
[2024-07-14 17:39] LABS: CALCIUM 7.7 mg/dL (8.7-10.4); CARBON DIOXIDE 21 mEq/L (21-32)
[2024-07-14 17:43] LABS: DIFFERENTIAL COMMENT 1
[2024-07-14 17:44] LABS: CREATININE 0.8 mg/dL (0.6-1.3); GLUCOSE 248 mg/dL (70-105)
[2024-07-14 17:45] LABS: UREA NITROGEN BLOOD 9 mg/dL (9-23)
[2024-07-14 17:46] LABS: AMMONIA 40 uMol/L (<32)
[2024-07-14 17:47] LABS: PHOSPHORUS 2.4 mg/dL (2.5-4.9)
[2024-07-14] MEDS: ACETAMINOPHEN 325MG TABLET PO PRN (19:31)
[2024-07-14 20:00] VITALS: BP 124/74; PULSE 72; RESP 18; TEMP 36.8; O2SAT 100
[2024-07-15] VITALS (7 sets, daily range): BP systolic 90–114; BP diastolic 53–73; PULSE 71–108; RESP 18–20; TEMP 36.4–36.9; O2SAT 97–99
[2024-07-15] MEDS: MAGNESIUM 2 G PREMIX 50 ML IV NR (01:04)
[2024-07-15] MEDS: SODIUM PHOSPHATE 20 MMOL in DEXT 5% WATER 243.3333 ML IV NR (05:20)
[2024-07-15 07:12] LABS: HEMATOCRIT. 25.5 % (42.0-52.0); HEMOGLOBIN. 7.8 g/dL (14.0-18.0); MEAN CORPUSCULAR HEMOGLOBIN 19.8 pg (28.0-32.0); MEAN CORPUSCULAR HGB CONC 30.6 g/dL (31.0-37.0); MEAN CORPUSCULAR VOLUME 64.8 fL (80.0-94.0); MEAN PLATELET VOLUME 8.8 fl (7.4-10.4); PLATELET 189 x1000/uL (130-400); RED BLOOD CELL COUNT 3.93 mill/uL (4.7-6.1); RED CELL DISTRIBUTION WIDTH 23.4 % (11.6-14.6); WHITE BLOOD COUNT 16.4 x1000/uL (4.5-11.0)
[2024-07-15 07:20] LABS: CHLORIDE 104 mEq/L (98-107); POTASSIUM 3.7 mEq/L (3.5-5.1); SODIUM 135 mEq/L (136-145)
[2024-07-15 07:21] LABS: CARBON DIOXIDE 19 mEq/L (21-32)
[2024-07-15 07:22] LABS: CALCIUM 7.3 mg/dL (8.7-10.4)
[2024-07-15 07:25] LABS: AMMONIA 59 uMol/L (<32)
[2024-07-15 07:26] LABS: GLUCOSE 139 mg/dL (70-105); UREA NITROGEN BLOOD 13 mg/dL (9-23)
[2024-07-15 07:28] LABS: ALANINE AMINOTRANSFERASE 36 IU/L (10-49); ALBUMIN 2.3 g/dL (3.2-4.8); ASPARTATE AMINOTRANSFERASE 82 IU/L (<34)
[2024-07-15 07:29] LABS: BILIRUBIN TOTAL 1.4 mg/dL (0.1-1.0); PROTEIN TOTAL 6.2 g/dL (6.0-8.3)
[2024-07-15 08:03] LABS: DIFFERENTIAL COMMENT 1
[2024-07-15] MEDS: LEVOFLOXACIN 250MG TABLET PO SCH (11:16)
[2024-07-15] MEDS: IPRATROPIUM/ALBUTEROL 0.5-3(2.5)MG/3ML NEB HHN NR (12:41)
[2024-07-15] MEDS ORDERED: IPRATROPIUM/ALBUTEROL 0.5-3(2.5)MG/3ML NEB HHN PRN (12:45)
[2024-07-15 14:11] LABS: PHOSPHORUS 3.6 mg/dL (2.5-4.9)
[2024-07-15] MEDS: FUROSEMIDE 40MG/4ML VIAL IVP NR (15:45)
[2024-07-15] MEDS: NICOTINE 21MG PATCH TD NR (15:45)
[2024-07-15 16:31] LABS: ANISOCYTOSIS 3+; HYPOCHROMASIA 2+; MICROCYTOSIS 3+; PLATELET ESTIMATE NORMAL
[2024-07-16] VITALS: BP 100/56; PULSE 76; RESP 20; TEMP 36.2; O2SAT 96
[2024-07-16 04:00] VITALS: BP 110/74; PULSE 86; RESP 18; TEMP 36.3; O2SAT 97
[2024-07-16 06:10] LABS: AMMONIA 38 uMol/L (<32)
[2024-07-16 06:46] LABS: CHLORIDE 100 mEq/L (98-107); POTASSIUM 3.7 mEq/L (3.5-5.1); SODIUM 129 mEq/L (136-145)
[2024-07-16 06:47] LABS: CALCIUM 7.4 mg/dL (8.7-10.4); CARBON DIOXIDE 24 mEq/L (21-32)
[2024-07-16 06:52] LABS: UREA NITROGEN BLOOD 17 mg/dL (9-23)
[2024-07-16 06:54] LABS: ALANINE AMINOTRANSFERASE 31 IU/L (10-49); ALBUMIN 2.3 g/dL (3.2-4.8); ASPARTATE AMINOTRANSFERASE 53 IU/L (<34); BILIRUBIN TOTAL 1.1 mg/dL (0.1-1.0)
[2024-07-16 06:55] LABS: PROTEIN TOTAL 6.2 g/dL (6.0-8.3)
[2024-07-16 07:13] LABS: BASOPHILS % 0.5 % (0.0-2.0); EOSINOPHILS % 1.9 % (0.0-5.0); HEMATOCRIT. 24.8 % (42.0-52.0); HEMOGLOBIN. 7.8 g/dL (14.0-18.0); LYMPHOCYTES % 11.9 % (20.0-50.0); MEAN CORPUSCULAR HGB CONC 31.3 g/dL (31.0-37.0); MEAN CORPUSCULAR VOLUME 63.9 fL (80.0-94.0); MEAN PLATELET VOLUME 9.4 fl (7.4-10.4); MONOCYTES % 10.2 % (2.0-8.0); NEUTROPHILS % 75.5 % (40.0-76.0); PLATELET 172 x1000/uL (130-400); RED BLOOD CELL COUNT 3.88 mill/uL (4.7-6.1); RED CELL DISTRIBUTION WIDTH 23.1 % (11.6-14.6); WHITE BLOOD COUNT 11.9 x1000/uL (4.5-11.0)
[2024-07-16 07:25] LABS: DIFFERENTIAL COMMENT 1
[2024-07-16 08:00] VITALS: BP 100/59; PULSE 91; RESP 20; TEMP 36.5; O2SAT 96
[2024-07-16 08:16] LABS: GLUCOSE 311 mg/dL (70-105)
[2024-07-16 12:00] VITALS: BP 114/50; PULSE 92; RESP 22; TEMP 36.2; O2SAT 98
[2024-07-16 16:04] VITALS: BP 108/55; PULSE 88; RESP 18; TEMP 36.6; O2SAT 97
== END 2024-07-16 19:45 | DRG 871 ==
LOC: ER 23:34 → 8WST 07-10 01:54
PROVIDERS: ADMIT Internal Medicine; ATTEND Internal Medicine
PROC: 06L38CZ Occlusion of Esophageal Vein with Extraluminal Device, Via Natural or Artificial Opening Endoscopic (ICD-10-PCS; principal; 2024-07-13)
DX: A41.59 Other Gram-negative sepsis (principal); G93.41 Metabolic encephalopathy; J18.9 Pneumonia, unspecified organism; E87.1 Hypo-osmolality and hyponatremia; K76.6 Portal hypertension; N39.0 Urinary tract infection, site not specified; K22.10 Ulcer of esophagus without bleeding; I85.10 Secondary esophageal varices without bleeding; F20.9 Schizophrenia, unspecified; I11.0 Hypertensive heart disease with heart failure; I50.9 Heart failure, unspecified; D50.9 Iron deficiency anemia, unspecified; D69.6 Thrombocytopenia, unspecified; K76.82 Hepatic encephalopathy; F10.20 Alcohol dependence, uncomplicated; F17.210 Nicotine dependence, cigarettes, uncomplicated; Z96.642 Presence of left artificial hip joint; E88.09 Other disorders of plasma-protein metabolism, not elsewhere classified; K31.89 Other diseases of stomach and duodenum; E83.51 Hypocalcemia; B19.20 Unspecified viral hepatitis C without hepatic coma; R16.1 Splenomegaly, not elsewhere classified; K29.30 Chronic superficial gastritis without bleeding; R13.11 Dysphagia, oral phase; K70.30 Alcoholic cirrhosis of liver without ascites; Z53.20 Procedure and treatment not carried out because of patient's decision for unspecified reasons; Z79.4 Long term (current) use of insulin; Z79.899 Other long term (current) drug therapy; Z22.322 Carrier or suspected carrier of Methicillin resistant Staphylococcus aureus; Z91.148 Patient's other noncompliance with medication regimen for other reason; Z87.11 Personal history of peptic ulcer disease; Z87.19 Personal history of other diseases of the digestive system; R65.20 Severe sepsis without septic shock
CPT/HCPCS: 36415; 71045; 80048; 80053; 80061; 80076; 80202; 80305; 81003; 82010; 82105; 82140; 82270; 82728; 82962; 83036; 83540; 83550; 83605; 83735; 83880; 83930; 84100; 84145; 84439; 84443; 84484; 85014; 85018; 85025; 85044; 85379; 86705; 86709; 86850; 86900; 86920; 87077; 87186; 87340; 87420; 87804; 92610; 93005; 93306; 94070; 94640; 94664; 97162; 97165; 99291; J1650; J1815; J1940; J2470; J2543; J3370; J3475; J3490; J7030; J7060; P9016; J0131

== ENCOUNTER 2024-09-28 15:19 | Inpatient (IN) | payer MEDICARE, MEDICAID ==
[~2024-09-28] VITALS: Ht 182.9 cm; Wt 103.9 kg
[~2024-09-28 15:19] MED LIST changes: +ALD50 PO; -COR3 PO; +FURO40TA5 PO; +LACT-390 PO; +LANTUSUD SUBCUT; -QUET200T30 PO; +QUET50TA PO; +SERT25TA74 PO
[2024-09-28] MEDS: ACETAMINOPHEN 650MG SUPP PR STA (16:01)
[2024-09-28] MEDS ORDERED: CEFTRIAXONE 1GM/50ML 50 ML IV ONE (16:15)
[2024-09-28] MEDS: SODIUM CHLORIDE 0.9% (SEPSIS BOLUS) IV ONE (16:15)
[2024-09-28 16:48] LABS: BASOPHILS % 0.9 % (0.0-2.0); EOSINOPHILS % 0.6 % (0.0-5.0); HEMATOCRIT. 23.6 % (42.0-52.0); HEMOGLOBIN. 7.5 g/dL (14.0-18.0); LYMPHOCYTES % 11.6 % (20.0-50.0); MEAN PLATELET VOLUME 7.7 fl (7.4-10.4); MONOCYTES % 9.5 % (2.0-8.0); NEUTROPHILS % 77.4 % (40.0-76.0); PLATELET 254 x1000/uL (130-400); RED BLOOD CELL COUNT 3.24 mill/uL (4.7-6.1); RED CELL DISTRIBUTION WIDTH 21.1 % (11.6-14.6)
[2024-09-28 16:58] LABS: INR 1.5
[2024-09-28 17:00] LABS: CREATININE 0.6 mg/dL (0.6-1.3)
[2024-09-28 17:01] LABS: ETHANOL BLOOD < 10 mg/dL (<10); TROPONIN I HIGH SENSITIVITY < 4 ng/L (3.0-53); UREA NITROGEN BLOOD 14 mg/dL (9-23)
[2024-09-28 17:02] LABS: ASPARTATE AMINOTRANSFERASE 44 IU/L (<34)
[2024-09-28 17:03] LABS: BILIRUBIN DIRECT 0.7 mg/dL (<=3.0); BILIRUBIN TOTAL 1.2 mg/dL (0.1-1.0); PROTEIN TOTAL 6.8 g/dL (6.0-8.3)
[2024-09-28] MEDS: CEFTRIAXONE 1GM/50ML 50 ML IV SCH (19:33)
[2024-09-28 23:40] VITALS: BP 136/78; PULSE 89; RESP 24; TEMP 36.6
[2024-09-29] VITALS: BP 103/61; PULSE 87; RESP 18; TEMP 36.7; O2SAT 98
[2024-09-29] MEDS ORDERED: CLONIDINE 0.1MG TABLET PO PRN (02:45)
[2024-09-29] MEDS ORDERED: ACETAMINOPHEN 325MG TABLET PO PRN (02:45)
[2024-09-29 04:00] VITALS: BP 99/53; PULSE 86; RESP 15; TEMP 36.9; O2SAT 98
[2024-09-29] MEDS: ACETAMINOPHEN 325MG TABLET PO PRN (04:09)
[2024-09-29] MEDS: SODIUM CHLORIDE 0.9% 3ML FLUSH IVF SCH (06:45)
[2024-09-29] MEDS: BLOOD SUGAR DIAGNOSTIC STRIP TEST SCH (06:46)
[2024-09-29] MEDS: PANTOPRAZOLE 40MG DR TABLET PO SCH (06:56)
[2024-09-29] MEDS: SUCRALFATE 1G TABLET PO SCH (06:56)
[2024-09-29] MEDS: INSULIN LISPRO 100 UNITS/ML SUBCUT SCH (06:57)
[2024-09-29 08:00] VITALS: BP 122/75; PULSE 95; RESP 19; TEMP 36.4; O2SAT 96
[2024-09-29] MEDS: SERTRALINE HCL 25MG TABLET PO SCH (09:00)
[2024-09-29] MEDS: CARVEDILOL 3.125 MG TABLET PO SCH (09:00)
[2024-09-29] MEDS: SPIRONOLACTONE 50MG TABLET PO SCH (09:00)
[2024-09-29] MEDS: QUETIAPINE FUMARATE 50MG TABLET PO SCH (09:00)
[2024-09-29 12:00] VITALS: BP 123/80; PULSE 97; RESP 18; TEMP 36.1; O2SAT 97
[2024-09-29] MEDS ORDERED: CEFAZOLIN SODIUM 1000MG/VIAL IV SCH ×2 (14:00)
[2024-09-29] MEDS ORDERED: CEFAZOLIN 1000MG PREMIX 50 ML IV SCH (15:00)
[2024-09-29] MEDS: CEFAZOLIN 1000MG PREMIX 50 ML IV SCH (15:47)
[2024-09-29 16:00] VITALS: BP 118/75; PULSE 90; RESP 18; TEMP 36.8; O2SAT 96
[2024-09-29] MEDS ORDERED: CEFTRIAXONE 1GM/50ML 50 ML IV SCH (18:00)
[2024-09-29 20:00] VITALS: BP 115/62; PULSE 103; RESP 18; TEMP 37.1; O2SAT 99
[2024-09-29] MEDS: CEFTRIAXONE 2GM/50ML 50 ML IV SCH (21:26)
[2024-09-29] MEDS: VANCOMYCIN 1.75GM PMX (XELLIA) 350 ML IV NR (22:44)
[2024-09-30] VITALS: BP 98/48; PULSE 102; RESP 18; TEMP 36.9; O2SAT 99
[2024-09-30 04:00] VITALS: BP 100/54; PULSE 109; RESP 17; TEMP 36.6; O2SAT 5
[2024-09-30] MEDS: VANCOMYCIN 750MG PREMIX 150 ML IV SCH ×2 (05:44→14:25)
[2024-09-30 08:00] VITALS: BP 92/53; PULSE 101; RESP 18; TEMP 36.6; O2SAT 94
[2024-09-30 12:00] VITALS: BP 90/54; PULSE 105; RESP 18; TEMP 36.5; O2SAT 91
[2024-09-30 16:00] VITALS: BP 99/56; PULSE 109; RESP 18; TEMP 36.7; O2SAT 92
[2024-09-30 20:00] VITALS: BP 92/53; PULSE 129; RESP 20; TEMP 36.9; O2SAT 93
[2024-10-01] VITALS (17 sets, daily range): BP systolic 77–118; BP diastolic 53–78; PULSE 99–119; RESP 15–48; TEMP 36.5–36.6; O2SAT 94–100
[2024-10-01] MEDS: MIDODRINE HCL 5MG TABLET PO SCH (01:51)
[2024-10-01 03:00] LABS: BG BASE EXCESS -3.4 mmol/L (-2.0-3.0); BG CARBOXYHEMOGLOBIN 0.9 % (0.5-1.5); BG DEOXYHEMOGLOBIN 1.4 % (0.0-5.0); BG FRACTION INSPIRED OXYGEN 40; BG HCO3 ACT 19.0 mmol/L (21.0-28.0); BG METHEMOGLOBIN 0.0 % (0.5-1.5); BG OXYGEN SATURATION 98.6 % (94.0-98.0); BG OXYHEMOGLOBIN 97.7 % (94.0-98.0); BG PCO2 25.5 mmHg (35.0-48.0); BG PH 7.489 (7.350-7.450); BG PO2 113.7 mmHg (83.0-108.0); BG SAMPLE SITE RIGHT RADIAL; BG TOTAL HEMOGLOBIN 9.5 g/dL (13.5-17.5); BG VENT MODE MASK - BIPAP; BG VENT RATE 24.0 set
[2024-10-01 03:05] LABS: HEMATOCRIT. 24.7 % (42.0-52.0); HEMOGLOBIN. 7.9 g/dL (14.0-18.0); MEAN PLATELET VOLUME 7.5 fl (7.4-10.4); PLATELET 269 x1000/uL (130-400); RED BLOOD CELL COUNT 3.39 mill/uL (4.7-6.1); RED CELL DISTRIBUTION WIDTH 20.9 % (11.6-14.6)
[2024-10-01 03:15] LABS: CREATININE 0.7 mg/dL (0.6-1.3); UREA NITROGEN BLOOD 16 mg/dL (9-23)
[2024-10-01 04:19] LABS: BAND% 14.0 % (1.0-6.0); LYMPHOCYTES % MANUAL 4.0 % (20.0-50.0); MONOCYTES % MANUAL 9.0 % (2.0-8.0); NEUTROPHILS % MANUAL 73.0 % (45.0-75.0); PLATELET ESTIMATE NORMAL
[2024-10-01] MEDS: VANCOMYCIN 500MG PREMIX 100 ML IV SCH (13:20)
[2024-10-01 17:15] LABS: BODY FLUID MONOCYTES 10 %; BODY FLUID RBC 1600 /cu mm (0-2000); BODY FLUID WBC 78 /cu mm (0-200)
[2024-10-01] MEDS: VANCOMYCIN 1.25GM/250ML 250 ML IV SCH (21:36)
[2024-10-01] MEDS ORDERED: LACTULOSE ENEMA 1,000ML BOTTLE PR PRN (23:15)
[2024-10-02] VITALS (13 sets, daily range): BP systolic 88–116; BP diastolic 62–73; PULSE 90–118; RESP 20–39; TEMP 36.3–36.7; O2SAT 90–100
[2024-10-02 05:51] LABS: HEMATOCRIT. 22.5 % (42.0-52.0); HEMOGLOBIN. 7.4 g/dL (14.0-18.0); LYMPHOCYTES % 14.2 % (20.0-50.0); MEAN PLATELET VOLUME 7.7 fl (7.4-10.4); NEUTROPHILS % 77.9 % (40.0-76.0); PLATELET 227 x1000/uL (130-400); RED BLOOD CELL COUNT 3.14 mill/uL (4.7-6.1); RED CELL DISTRIBUTION WIDTH 20.5 % (11.6-14.6)
[2024-10-02 05:52] LABS: BASOPHILS % 0.1 % (0.0-2.0); EOSINOPHILS % 1.3 % (0.0-5.0); INR 1.7; MONOCYTES % 6.5 % (2.0-8.0)
[2024-10-02 06:06] LABS: CREATININE 0.6 mg/dL (0.6-1.3)
[2024-10-02 06:07] LABS: PROTEIN TOTAL 6.0 g/dL (6.0-8.3); UREA NITROGEN BLOOD 16 mg/dL (9-23)
[2024-10-02 06:08] LABS: ASPARTATE AMINOTRANSFERASE 57 IU/L (<34)
[2024-10-02 06:09] LABS: BILIRUBIN TOTAL 1.4 mg/dL (0.1-1.0)
[2024-10-02 06:10] LABS: FOLIC ACID (FOLATE) SERUM 3.23 ng/mL (>5.38)
[2024-10-02 06:11] LABS: VITAMIN B12 SERUM 1604 pg/mL (211-911)
[2024-10-02] MEDS: LACTULOSE 20G/30ML UDC PO SCH (08:06)
[2024-10-02] MEDS: PANTOPRAZOLE SODIUM 40 MG/VIAL IV SCH (08:07)
[2024-10-02] MEDS: FOLIC ACID 1MG TABLET PO SCH (10:46)
[2024-10-02] MEDS: IRON SUCROSE COMPLEX 100 MG/5 ML ML IV SCH (10:47)
[2024-10-02] MEDS: PHYTONADIONE 10MG/ML INJ SUBCUT SCH (10:47)
[2024-10-03] VITALS (15 sets, daily range): BP systolic 77–108; BP diastolic 44–98; PULSE 88–104; RESP 19–39; TEMP 36.4–37.1; O2SAT 95–100
[2024-10-03 06:08] LABS: INR 1.7
[2024-10-03 06:21] LABS: BASOPHILS % 0.3 % (0.0-2.0); EOSINOPHILS % 1.2 % (0.0-5.0); HEMATOCRIT. 24.4 % (42.0-52.0); HEMOGLOBIN. 8.0 g/dL (14.0-18.0); LYMPHOCYTES % 9.0 % (20.0-50.0); MEAN PLATELET VOLUME 7.8 fl (7.4-10.4); MONOCYTES % 4.2 % (2.0-8.0); NEUTROPHILS % 85.3 % (40.0-76.0); PLATELET 206 x1000/uL (130-400); RED BLOOD CELL COUNT 3.38 mill/uL (4.7-6.1); RED CELL DISTRIBUTION WIDTH 20.5 % (11.6-14.6)
[2024-10-03 06:42] LABS: CREATININE 0.7 mg/dL (0.6-1.3)
[2024-10-03 06:43] LABS: UREA NITROGEN BLOOD 14 mg/dL (9-23)
[2024-10-03 06:44] LABS: ASPARTATE AMINOTRANSFERASE 62 IU/L (<34)
[2024-10-03 06:45] LABS: BILIRUBIN DIRECT 1.1 mg/dL (<=3.0); BILIRUBIN TOTAL 1.6 mg/dL (0.1-1.0); PROTEIN TOTAL 6.5 g/dL (6.0-8.3)
[2024-10-03] MEDS: DIPHENHYDRAMINE 50MG/ML VIAL IV PRN (11:25)
[2024-10-03] MEDS: PIPERACILLIN/TAZO 3.375G/50ML 50 ML IV SCH (14:48)
[2024-10-03] MEDS: LACTULOSE ENEMA 1,000ML BOTTLE PR SCH (15:00)
[2024-10-03] MEDS: AZITHROMYCIN 500MG/250ML 250 ML IV SCH (17:51)
[2024-10-03] MEDS: LACTULOSE 20G/30ML UDC PO SCH (17:54)
[2024-10-03] MEDS: RIFAXIMIN 550 MG TABLET PO SCH (20:50)
[2024-10-03] MEDS: VANCOMYCIN 1GM PMX (XELLIA) 200 ML IV SCH (23:29)
[2024-10-04] VITALS (89 sets, daily range): BP systolic 61–144; BP diastolic 46–97; PULSE 72–126; RESP 18–36; TEMP 36.2–36.78072; O2SAT 83–100
[2024-10-04 01:14] LABS: BG BASE EXCESS -3.6 mmol/L (-2.0-3.0); BG CARBOXYHEMOGLOBIN 1.4 % (0.5-1.5); BG DEOXYHEMOGLOBIN 5.0 % (0.0-5.0); BG FRACTION INSPIRED OXYGEN 100; BG HCO3 ACT 21.5 mmol/L (21.0-28.0); BG METHEMOGLOBIN 0.0 % (0.5-1.5); BG OXYGEN SATURATION 94.9 % (94.0-98.0); BG OXYHEMOGLOBIN 93.6 % (94.0-98.0); BG PCO2 38.7 mmHg (35.0-48.0); BG PEEP (cmH2O) 5.0 cmH2O; BG PH 7.362 (7.350-7.450); BG PO2 81.9 mmHg (83.0-108.0); BG SAMPLE SITE RIGHT RADIAL; BG TOTAL HEMOGLOBIN 8.8 g/dL (13.5-17.5); BG VENT MODE MASK - BIPAP; BG VENT RATE 16.0 set
[2024-10-04] MEDS: IPRATROPIUM/ALBUTEROL 0.5-3(2.5)MG/3ML NEB HHN SCH (03:57)
[2024-10-04] MEDS: ALBUMIN HUMAN 25GM/100ML (25%) IV NR (04:25)
[2024-10-04] MEDS: METHYLPREDNISOLONE SOD SUCC 40MG/ML (ACT-O-VIAL) IV SCH (04:26)
[2024-10-04] MEDS: NOREPINEPHRINE 8MG/250ML PMX 250 ML IV SCH (04:27)
[2024-10-04 04:38] LABS: BG BASE EXCESS -6.6 mmol/L (-2.0-3.0); BG CARBOXYHEMOGLOBIN 1.1 % (0.5-1.5); BG DEOXYHEMOGLOBIN 6.3 % (0.0-5.0); BG FRACTION INSPIRED OXYGEN 100; BG HCO3 ACT 24.2 mmol/L (21.0-28.0); BG METHEMOGLOBIN 0.1 % (0.5-1.5); BG OXYGEN SATURATION 93.6 % (94.0-98.0); BG OXYHEMOGLOBIN 92.5 % (94.0-98.0); BG PCO2 84.7 mmHg (35.0-48.0); BG PEEP (cmH2O) 10.0 cmH2O; BG PH 7.074 (7.350-7.450); BG PIP 20.0 cmH2O; BG PO2 98.4 mmHg (83.0-108.0); BG SAMPLE SITE RIGHT RADIAL; BG TOTAL HEMOGLOBIN 9.7 g/dL (13.5-17.5); BG VENT MODE VENT - P/C; BG VENT RATE 18.0 set
[2024-10-04] MEDS: PROPOFOL 10MG/ML 100ML 100 ML IV PRN (04:42)
[2024-10-04] MEDS: PHENYLEPHRINE 50MG/250ML PMX 250 ML IV PRN (05:21)
[2024-10-04] MEDS: FENTANYL 2500MCG/250ML PMX 250 ML IV PRN (05:51)
[2024-10-04 05:53] LABS: CREATININE 0.7 mg/dL (0.6-1.3); UREA NITROGEN BLOOD 19 mg/dL (9-23)
[2024-10-04 05:54] LABS: LACTATE DEHYDROGENASE 701 IU/L (120-246)
[2024-10-04 05:55] LABS: ASPARTATE AMINOTRANSFERASE 89 IU/L (<34); BILIRUBIN DIRECT 1.1 mg/dL (<=3.0); BILIRUBIN TOTAL 1.6 mg/dL (0.1-1.0); PROTEIN TOTAL 7.0 g/dL (6.0-8.3)
[2024-10-04 06:02] LABS: INR 1.9
[2024-10-04 06:41] LABS: BASOPHILS % 0.4 % (0.0-2.0); EOSINOPHILS % 0.6 % (0.0-5.0); HEMATOCRIT. 26.0 % (42.0-52.0); HEMOGLOBIN. 8.2 g/dL (14.0-18.0); LYMPHOCYTES % 14.5 % (20.0-50.0); MEAN PLATELET VOLUME 9.1 fl (7.4-10.4); MONOCYTES % 3.2 % (2.0-8.0); NEUTROPHILS % 81.3 % (40.0-76.0); PLATELET 225 x1000/uL (130-400); RED BLOOD CELL COUNT 3.51 mill/uL (4.7-6.1); RED CELL DISTRIBUTION WIDTH 20.0 % (11.6-14.6)
[2024-10-04 06:45] LABS: BG BASE EXCESS -5.6 mmol/L (-2.0-3.0); BG CARBOXYHEMOGLOBIN 1.1 % (0.5-1.5); BG DEOXYHEMOGLOBIN 3.5 % (0.0-5.0); BG FRACTION INSPIRED OXYGEN 80; BG HCO3 ACT 21.6 mmol/L (21.0-28.0); BG METHEMOGLOBIN 0.3 % (0.5-1.5); BG OXYGEN SATURATION 96.5 % (94.0-98.0); BG OXYHEMOGLOBIN 95.1 % (94.0-98.0); BG PCO2 51.1 mmHg (35.0-48.0); BG PEEP (cmH2O) 8.0 cmH2O; BG PH 7.244 (7.350-7.450); BG PIP 25.0 cmH2O; BG PO2 103.2 mmHg (83.0-108.0); BG SAMPLE SITE RIGHT RADIAL; BG TOTAL HEMOGLOBIN 9.0 g/dL (13.5-17.5); BG VENT MODE VENT - P/C; BG VENT RATE 28.0 set
[2024-10-04] MEDS: VANCOMYCIN 1G PREMIX 200 ML IV SCH (13:53)
[2024-10-05] VITALS (102 sets, daily range): BP systolic 51–121; BP diastolic 56–98; PULSE 76–99; RESP 2–32; TEMP 36.2–36.9; O2SAT 92–100
[2024-10-05] MEDS: PHENYLEPHRINE 100 MG in DEXT 5% WATER 240 ML IV PRN (04:40)
[2024-10-05 10:10] LABS: BG BASE EXCESS -5.6 mmol/L (-2.0-3.0); BG CARBOXYHEMOGLOBIN 1.2 % (0.5-1.5); BG DEOXYHEMOGLOBIN 3.1 % (0.0-5.0); BG FRACTION INSPIRED OXYGEN 70; BG HCO3 ACT 18.2 mmol/L (21.0-28.0); BG METHEMOGLOBIN 0.1 % (0.5-1.5); BG OXYGEN SATURATION 96.9 % (94.0-98.0); BG OXYHEMOGLOBIN 95.6 % (94.0-98.0); BG PCO2 29.5 mmHg (35.0-48.0); BG PEEP (cmH2O) 8.0 cmH2O; BG PH 7.409 (7.350-7.450); BG PO2 91.6 mmHg (83.0-108.0); BG TIDAL VOLUME(mL) 600.0 mL; BG TOTAL HEMOGLOBIN 8.3 g/dL (13.5-17.5); BG VENT MODE VENT - AC; BG VENT RATE 28.0 set
[2024-10-05 10:25] LABS: BASOPHILS % 0.1 % (0.0-2.0); EOSINOPHILS % 0.0 % (0.0-5.0); HEMATOCRIT. 24.0 % (42.0-52.0); HEMOGLOBIN. 7.4 g/dL (14.0-18.0); LYMPHOCYTES % 10.3 % (20.0-50.0); MEAN PLATELET VOLUME 7.8 fl (7.4-10.4); MONOCYTES % 2.5 % (2.0-8.0); NEUTROPHILS % 87.1 % (40.0-76.0); PLATELET 206 x1000/uL (130-400); RED BLOOD CELL COUNT 3.20 mill/uL (4.7-6.1); RED CELL DISTRIBUTION WIDTH 21.1 % (11.6-14.6)
[2024-10-05 10:26] LABS: CREATININE 0.9 mg/dL (0.6-1.3); TRIGLYCERIDE 106 mg/dL (0-150); UREA NITROGEN BLOOD 29 mg/dL (9-23)
[2024-10-05] MEDS: PROPOFOL 10MG/ML 100ML 100 ML IV PRN (11:22)
[2024-10-05 11:41] LABS: INR 1.8
[2024-10-05] MEDS: METOCLOPRAMIDE HCL 10MG/2ML VIAL IV SCH (17:45)
[2024-10-06] VITALS (102 sets, daily range): BP systolic 82–111; BP diastolic 49–97; PULSE 87–105; RESP 16–32; TEMP 36.6–37.1; O2SAT 90–100
[2024-10-06 04:12] LABS: BASOPHILS % 0.5 % (0.0-2.0); EOSINOPHILS % 1.6 % (0.0-5.0); HEMATOCRIT. 24.8 % (42.0-52.0); HEMOGLOBIN. 7.9 g/dL (14.0-18.0); LYMPHOCYTES % 13.3 % (20.0-50.0); MEAN PLATELET VOLUME 7.9 fl (7.4-10.4); MONOCYTES % 1.7 % (2.0-8.0); NEUTROPHILS % 82.9 % (40.0-76.0); PLATELET 187 x1000/uL (130-400); RED BLOOD CELL COUNT 3.34 mill/uL (4.7-6.1); RED CELL DISTRIBUTION WIDTH 20.6 % (11.6-14.6)
[2024-10-06 04:31] LABS: TRIGLYCERIDE 137 mg/dL (0-150)
[2024-10-06 04:32] LABS: ASPARTATE AMINOTRANSFERASE 46 IU/L (<34)
[2024-10-06 04:33] LABS: BILIRUBIN TOTAL 1.3 mg/dL (0.1-1.0); PROTEIN TOTAL 6.9 g/dL (6.0-8.3)
[2024-10-06 04:41] LABS: CREATININE 1.5 mg/dL (0.6-1.3)
[2024-10-06 04:42] LABS: UREA NITROGEN BLOOD 42 mg/dL (9-23)
[2024-10-06 04:43] LABS: INR 1.6
[2024-10-06] MEDS: LACTULOSE 20G/30ML UDC PO SCH ×2 (06:00→13:16)
[2024-10-06 08:17] LABS: BG BASE EXCESS -8.1 mmol/L (-2.0-3.0); BG CARBOXYHEMOGLOBIN 0.8 % (0.5-1.5); BG DEOXYHEMOGLOBIN 8.2 % (0.0-5.0); BG FRACTION INSPIRED OXYGEN 80; BG HCO3 ACT 17.0 mmol/L (21.0-28.0); BG METHEMOGLOBIN 0.3 % (0.5-1.5); BG OXYGEN SATURATION 91.7 % (94.0-98.0); BG OXYHEMOGLOBIN 90.7 % (94.0-98.0); BG PCO2 32.9 mmHg (35.0-48.0); BG PEEP (cmH2O) 8.0 cmH2O; BG PH 7.330 (7.350-7.450); BG PO2 70.5 mmHg (83.0-108.0); BG SAMPLE SITE RIGHT RADIAL; BG TIDAL VOLUME(mL) 600.0 mL; BG TOTAL HEMOGLOBIN 8.6 g/dL (13.5-17.5); BG VENT MODE VENT - PRVC; BG VENT RATE 28.0 set
[2024-10-06] MEDS: VANCOMYCIN 1.25GM/250ML IV SCH (08:19)
[2024-10-06] MEDS: FERROUS SULFATE 300MG/5ML UDC NG SCH (08:19)
[2024-10-06] MEDS: PHYTONADIONE 10MG/ML INJ SUBCUT SCH (08:21)
[2024-10-06] MEDS: ALBUMIN HUMAN 12.5G/250ML (5%) IV SCH (11:19)
[2024-10-06] MEDS: DEXT 5%/LACTATED RINGERS 1,000 ML IV SCH (11:27)
[2024-10-06] MEDS: LACTULOSE ENEMA 1,000ML BOTTLE PR SCH (12:36)
[2024-10-06 12:40] LABS: BG BASE EXCESS -6.3 mmol/L (-2.0-3.0); BG CARBOXYHEMOGLOBIN 1.1 % (0.5-1.5); BG DEOXYHEMOGLOBIN 3.0 % (0.0-5.0); BG FRACTION INSPIRED OXYGEN 80; BG HCO3 ACT 18.7 mmol/L (21.0-28.0); BG METHEMOGLOBIN 0.0 % (0.5-1.5); BG OXYGEN SATURATION 97.0 % (94.0-98.0); BG OXYHEMOGLOBIN 95.9 % (94.0-98.0); BG PCO2 35.1 mmHg (35.0-48.0); BG PEEP (cmH2O) 10.0 cmH2O; BG PH 7.345 (7.350-7.450); BG PIP 25.0 cmH2O; BG PO2 97.4 mmHg (83.0-108.0); BG SAMPLE SITE RIGHT RADIAL; BG TOTAL HEMOGLOBIN 8.7 g/dL (13.5-17.5); BG VENT MODE VENT - P/C; BG VENT RATE 28.0 set
[2024-10-06] MEDS: PROPOFOL 10MG/ML 100ML 100 ML IV PRN (13:17)
[2024-10-07] VITALS (80 sets, daily range): BP systolic 74–104; BP diastolic 46–63; PULSE 82–100; RESP 20–32; TEMP 36.7–37.2; O2SAT 89–100
[2024-10-07 06:05] LABS: BASOPHILS % 0.3 % (0.0-2.0); EOSINOPHILS % 3.6 % (0.0-5.0); HEMATOCRIT. 24.0 % (42.0-52.0); HEMOGLOBIN. 7.2 g/dL (14.0-18.0); LYMPHOCYTES % 14.7 % (20.0-50.0); MEAN PLATELET VOLUME 8.3 fl (7.4-10.4); MONOCYTES % 2.0 % (2.0-8.0); NEUTROPHILS % 79.4 % (40.0-76.0); PLATELET 104 x1000/uL (130-400); RED BLOOD CELL COUNT 3.08 mill/uL (4.7-6.1); RED CELL DISTRIBUTION WIDTH 21.2 % (11.6-14.6)
[2024-10-07 06:11] LABS: INR 1.8
[2024-10-07 07:37] LABS: CREATININE 1.8 mg/dL (0.6-1.3)
[2024-10-07 07:38] LABS: TRIGLYCERIDE 102 mg/dL (0-150); UREA NITROGEN BLOOD 46 mg/dL (9-23)
[2024-10-07 07:40] LABS: ASPARTATE AMINOTRANSFERASE 42 IU/L (<34); BILIRUBIN TOTAL 1.8 mg/dL (0.1-1.0); PROTEIN TOTAL 6.7 g/dL (6.0-8.3)
[2024-10-07 08:45] LABS: BG BASE EXCESS -7.8 mmol/L (-2.0-3.0); BG CARBOXYHEMOGLOBIN 0.9 % (0.5-1.5); BG DEOXYHEMOGLOBIN 0.6 % (0.0-5.0); BG FRACTION INSPIRED OXYGEN 80; BG HCO3 ACT 18.0 mmol/L (21.0-28.0); BG METHEMOGLOBIN 0.2 % (0.5-1.5); BG OXYGEN SATURATION 99.4 % (94.0-98.0); BG OXYHEMOGLOBIN 98.3 % (94.0-98.0); BG PCO2 37.7 mmHg (35.0-48.0); BG PEEP (cmH2O) 10.0 cmH2O; BG PH 7.296 (7.350-7.450); BG PIP 25.0 cmH2O; BG PO2 181.6 mmHg (83.0-108.0); BG SAMPLE SITE RIGHT RADIAL; BG TOTAL HEMOGLOBIN 9.0 g/dL (13.5-17.5); BG VENT MODE VENT - P/C; BG VENT RATE 28.0 set
[2024-10-07] MEDS: VASOPRESSIN 20 UNIT in SODIUM CHLORIDE 0.9% 99 ML IV PRN (10:09)
[2024-10-07] MEDS: PHYTONADIONE 10MG/ML INJ SUBCUT NR (13:41)
[2024-10-07] MEDS: PROPOFOL 10MG/ML 100ML 100 ML IV PRN (14:08)
[2024-10-07] MEDS ORDERED: VANCOMYCIN 1.25GM/250ML IV SCH (15:00)
[2024-10-07] MEDS: KCL 20MEQ/100ML PREMIX 100 ML IV SCH (17:35)
[2024-10-08] VITALS (100 sets, daily range): BP systolic 80–123; BP diastolic 46–74; PULSE 76–89; RESP 19–34; TEMP 36.5–37.2; O2SAT 90–100
[2024-10-08 06:03] LABS: CREATININE 1.6 mg/dL (0.6-1.3); TRIGLYCERIDE 102 mg/dL (0-150); UREA NITROGEN BLOOD 41 mg/dL (9-23)
[2024-10-08 06:04] LABS: ASPARTATE AMINOTRANSFERASE 38 IU/L (<34)
[2024-10-08 06:05] LABS: BILIRUBIN TOTAL 2.1 mg/dL (0.1-1.0); PROTEIN TOTAL 6.4 g/dL (6.0-8.3)
[2024-10-08 06:38] LABS: INR 1.6
[2024-10-08 07:10] LABS: BASOPHILS % 0.1 % (0.0-2.0); EOSINOPHILS % 4.1 % (0.0-5.0); HEMATOCRIT. 22.6 % (42.0-52.0); HEMOGLOBIN. 7.1 g/dL (14.0-18.0); LYMPHOCYTES % 15.3 % (20.0-50.0); MEAN PLATELET VOLUME 8.7 fl (7.4-10.4); MONOCYTES % 1.9 % (2.0-8.0); NEUTROPHILS % 78.6 % (40.0-76.0); PLATELET 79 x1000/uL (130-400); RED BLOOD CELL COUNT 2.92 mill/uL (4.7-6.1); RED CELL DISTRIBUTION WIDTH 20.9 % (11.6-14.6)
[2024-10-08 07:58] LABS: BG BASE EXCESS -6.7 mmol/L (-2.0-3.0); BG CARBOXYHEMOGLOBIN 0.9 % (0.5-1.5); BG DEOXYHEMOGLOBIN 7.5 % (0.0-5.0); BG FRACTION INSPIRED OXYGEN 60; BG HCO3 ACT 19.8 mmol/L (21.0-28.0); BG METHEMOGLOBIN 0.3 % (0.5-1.5); BG OXYGEN SATURATION 92.4 % (94.0-98.0); BG OXYHEMOGLOBIN 91.3 % (94.0-98.0); BG PCO2 43.9 mmHg (35.0-48.0); BG PEEP (cmH2O) 10.0 cmH2O; BG PH 7.271 (7.350-7.450); BG PO2 73.7 mmHg (83.0-108.0); BG SAMPLE SITE LEFT RADIAL; BG TOTAL HEMOGLOBIN 8.0 g/dL (13.5-17.5); BG VENT MODE VENT - P/C; BG VENT RATE 28.0 set
[2024-10-08] MEDS: METHYLPREDNISOLONE SOD SUCC 40MG/ML (ACT-O-VIAL) IV SCH (13:19)
[2024-10-08] MEDS: VANCOMYCIN 1GM/200ML PMX (BAXTER) IV SCH (13:21)
[2024-10-09] VITALS (107 sets, daily range): BP systolic 79–132; BP diastolic 49–93; PULSE 71–88; RESP 17–34; TEMP 36.6–36.7; O2SAT 93–100
[2024-10-09 00:45] LABS: CLARITY URINE CLEAR (CLEAR); COLOR URINE YELLOW (YELLOW); GLUCOSE URINE TRACE (NEGATIVE); KETONES URINE NEGATIVE (NEGATIVE); LEUKOCYTE ESTERASE URINE NEGATIVE (NEGATIVE); NITRITE URINE NEGATIVE (NEGATIVE); OCCULT BLOOD URINE NEGATIVE (NEGATIVE); PH URINE 5.5 (4.5-8.0); PROTEIN URINE TRACE (NEGATIVE); SPECIFIC GRAVITY URINE 1.016 (1.005-1.030); UROBILINOGEN URINE 1.0 E.U./dL (0.2-1.0)
[2024-10-09 01:06] LABS: RBC URINE NONE SEEN /hpf (0-2); SQUAMOUS EPITHELIAL CELL URINE NONE SEEN /lpf (RARE/1+); WBC URINE 0-2 /hpf (0-2)
[2024-10-09 01:07] LABS: BACTERIA URINE TRACE
[2024-10-09] MEDS: PROPOFOL 10MG/ML 100ML 100 ML IV PRN (02:51)
[2024-10-09 05:34] LABS: BASOPHILS % 0.1 % (0.0-2.0); EOSINOPHILS % 0.0 % (0.0-5.0); HEMATOCRIT. 24.2 % (42.0-52.0); HEMOGLOBIN. 7.4 g/dL (14.0-18.0); LYMPHOCYTES % 10.1 % (20.0-50.0); MEAN PLATELET VOLUME 9.0 fl (7.4-10.4); MONOCYTES % 1.8 % (2.0-8.0); NEUTROPHILS % 88.0 % (40.0-76.0); PLATELET 81 x1000/uL (130-400); RED BLOOD CELL COUNT 3.08 mill/uL (4.7-6.1); RED CELL DISTRIBUTION WIDTH 21.0 % (11.6-14.6)
[2024-10-09 05:44] LABS: INR 1.7
[2024-10-09 06:00] LABS: CREATININE 1.2 mg/dL (0.6-1.3); TRIGLYCERIDE 105 mg/dL (0-150); UREA NITROGEN BLOOD 35 mg/dL (9-23)
[2024-10-09 06:02] LABS: ASPARTATE AMINOTRANSFERASE 31 IU/L (<34); BILIRUBIN TOTAL 1.7 mg/dL (0.1-1.0)
[2024-10-09 06:03] LABS: PROTEIN TOTAL 6.9 g/dL (6.0-8.3)
[2024-10-09 09:36] LABS: BG BASE EXCESS -5.7 mmol/L (-2.0-3.0); BG CARBOXYHEMOGLOBIN 1.8 % (0.5-1.5); BG DEOXYHEMOGLOBIN 0.8 % (0.0-5.0); BG FRACTION INSPIRED OXYGEN 75; BG HCO3 ACT 21.0 mmol/L (21.0-28.0); BG METHEMOGLOBIN 0.1 % (0.5-1.5); BG OXYGEN SATURATION 99.2 % (94.0-98.0); BG OXYHEMOGLOBIN 97.3 % (94.0-98.0); BG PCO2 47.1 mmHg (35.0-48.0); BG PEEP (cmH2O) 10.0 cmH2O; BG PH 7.267 (7.350-7.450); BG PO2 144.4 mmHg (83.0-108.0); BG SAMPLE SITE RIGHT RADIAL; BG TOTAL HEMOGLOBIN 8.2 g/dL (13.5-17.5); BG VENT MODE VENT - P/C; BG VENT RATE 30.0 set
[2024-10-09] MEDS ORDERED: FENTANYL 2500MCG/250ML PMX 250 ML IV PRN (16:15)
[2024-10-09] MEDS: VANCOMYCIN 1.25GM/250ML IV SCH (17:30)
[2024-10-09] MEDS: FERROUS SULFATE 300MG/5ML UDC PO SCH (22:05)
[2024-10-10] VITALS (98 sets, daily range): BP systolic 87–140; BP diastolic 42–83; PULSE 69–87; RESP 9–33; TEMP 36.1–36.7; O2SAT 94–100
[2024-10-10 05:20] LABS: CREATININE 0.9 mg/dL (0.6-1.3); TRIGLYCERIDE 93 mg/dL (0-150); UREA NITROGEN BLOOD 29 mg/dL (9-23)
[2024-10-10] MEDS: PROPOFOL 10MG/ML 100ML 100 ML IV PRN (08:30)
[2024-10-10 09:06] LABS: BG SAMPLE SITE LEFT RADIAL
[2024-10-10 09:07] LABS: BG FRACTION INSPIRED OXYGEN 60; BG PEEP (cmH2O) 10 cmH2O; BG VENT RATE 26 set
[2024-10-10 09:08] LABS: BG PH 7.336 (7.350-7.450); BG VENT MODE PC 20
[2024-10-10 09:09] LABS: BG BASE EXCESS -4.3 mmol/L (-2.0-3.0); BG CARBOXYHEMOGLOBIN 1.6 % (0.5-1.5); BG HCO3 ACT 21.2 mmol/L (21.0-28.0); BG OXYGEN SATURATION 96.0 % (94.0-98.0); BG OXYHEMOGLOBIN 94.4 % (94.0-98.0); BG PCO2 40.5 mmHg (35.0-48.0); BG PO2 85.1 mmHg (83.0-108.0); BG TOTAL HEMOGLOBIN 8.6 g/dL (13.5-17.5)
[2024-10-10 09:10] LABS: BG DEOXYHEMOGLOBIN 3.9 % (0.0-5.0); BG METHEMOGLOBIN 0.1 % (0.5-1.5)
[2024-10-10] MEDS: INSULIN GLARGINE 100 UNITS/ML SUBCUT SCH (11:03)
[2024-10-10 12:52] LABS: BASOPHILS % 0.1 % (0.0-2.0); EOSINOPHILS % 0.0 % (0.0-5.0); HEMATOCRIT. 24.9 % (42.0-52.0); HEMOGLOBIN. 7.8 g/dL (14.0-18.0); LYMPHOCYTES % 9.0 % (20.0-50.0); MEAN PLATELET VOLUME 8.9 fl (7.4-10.4); MONOCYTES % 3.5 % (2.0-8.0); NEUTROPHILS % 87.4 % (40.0-76.0); PLATELET 88 x1000/uL (130-400); RED BLOOD CELL COUNT 3.14 mill/uL (4.7-6.1); RED CELL DISTRIBUTION WIDTH 21.2 % (11.6-14.6)
[2024-10-10] MEDS: INSULIN LISPRO 100 UNITS/ML SUBCUT SCH (13:11)
[2024-10-10] MEDS ORDERED: METOCLOPRAMIDE 10MG/10 ML UDC PO PRN (13:30)
[2024-10-10] MEDS: FENTANYL 2500MCG/250ML PMX 250 ML IV PRN (15:30)
[2024-10-10] MEDS: LACTULOSE ENEMA 1,000ML BOTTLE PR SCH (20:15)
[2024-10-10] MEDS: VANCOMYCIN 1G PREMIX 200 ML IV SCH (20:18)
[2024-10-10] MEDS: BLOOD SUGAR DIAGNOSTIC STRIP TEST SCH (23:25)
[2024-10-11] VITALS (101 sets, daily range): BP systolic 86–143; BP diastolic 53–88; PULSE 57–86; RESP 11–31; TEMP 36.3–36.78072; O2SAT 92–100
[2024-10-11 06:28] LABS: BASOPHILS % 0.1 % (0.0-2.0); EOSINOPHILS % 0.0 % (0.0-5.0); HEMATOCRIT. 25.4 % (42.0-52.0); HEMOGLOBIN. 7.8 g/dL (14.0-18.0); LYMPHOCYTES % 9.6 % (20.0-50.0); MEAN PLATELET VOLUME 9.3 fl (7.4-10.4); MONOCYTES % 4.6 % (2.0-8.0); NEUTROPHILS % 85.7 % (40.0-76.0); PLATELET 74 x1000/uL (130-400); RED BLOOD CELL COUNT 3.17 mill/uL (4.7-6.1); RED CELL DISTRIBUTION WIDTH 21.9 % (11.6-14.6)
[2024-10-11 06:45] LABS: CREATININE 0.9 mg/dL (0.6-1.3); UREA NITROGEN BLOOD 33 mg/dL (9-23)
[2024-10-11 06:47] LABS: ASPARTATE AMINOTRANSFERASE 51 IU/L (<34); BILIRUBIN TOTAL 1.2 mg/dL (0.1-1.0); PROTEIN TOTAL 6.3 g/dL (6.0-8.3)
[2024-10-11 07:11] LABS: INR 2.1
[2024-10-11] MEDS ORDERED: RIFAXIMIN 200MG TABLET PO SCH (09:00)
[2024-10-11] MEDS ORDERED: LACTULOSE ENEMA 1,000ML BOTTLE PR SCH ×2 (09:00)
[2024-10-11] MEDS: RIFAXIMIN 550 MG TABLET PO SCH (09:00)
[2024-10-11 09:16] LABS: BG BASE EXCESS -2.7 mmol/L (-2.0-3.0); BG CARBOXYHEMOGLOBIN 0.9 % (0.5-1.5); BG DEOXYHEMOGLOBIN 6.1 % (0.0-5.0); BG FRACTION INSPIRED OXYGEN 50; BG HCO3 ACT 23.9 mmol/L (21.0-28.0); BG METHEMOGLOBIN 0.3 % (0.5-1.5); BG OXYGEN SATURATION 93.8 % (94.0-98.0); BG OXYHEMOGLOBIN 92.7 % (94.0-98.0); BG PCO2 50.4 mmHg (35.0-48.0); BG PEEP (cmH2O) 10.0 cmH2O; BG PH 7.294 (7.350-7.450); BG PIP 20.0 cmH2O; BG PO2 79.7 mmHg (83.0-108.0); BG SAMPLE SITE RIGHT RADIAL; BG TOTAL HEMOGLOBIN 8.9 g/dL (13.5-17.5); BG TOTAL RESPIRATORY RATE 26 b/min; BG VENT MODE VENT - P/C; BG VENT RATE 26.0 set
[2024-10-11] MEDS: PHYTONADIONE 10MG/ML INJ SUBCUT SCH (10:15)
[2024-10-11] MEDS: METHYLPREDNISOLONE SOD SUCC 40MG/ML (ACT-O-VIAL) IV SCH (11:37)
[2024-10-11] MEDS: LACTULOSE 20G/30ML UDC PO SCH (11:37)
[2024-10-11 18:28] LABS: INR 2.0
[2024-10-12] VITALS (106 sets, daily range): BP systolic 118–163; BP diastolic 67–106; PULSE 79–118; RESP 16–34; TEMP 36.3918–37.2; O2SAT 95–100
[2024-10-12] MEDS: IOHEXOL-300 100 ML BOTTLE ONE (00:25)
[2024-10-12] MEDS: LIDOCAINE HCL 1% 10 MG/ML 10ML VIAL ONE (00:25)
[2024-10-12] MEDS: SODIUM BICARBONATE 4.2% 2.5MEQ/5ML VIAL IV ONE (00:26)
[2024-10-12 05:27] LABS: BASOPHILS % 0.1 % (0.0-2.0); EOSINOPHILS % 0.0 % (0.0-5.0); HEMATOCRIT. 26.9 % (42.0-52.0); HEMOGLOBIN. 8.3 g/dL (14.0-18.0); LYMPHOCYTES % 12.7 % (20.0-50.0); MEAN PLATELET VOLUME 9.0 fl (7.4-10.4); MONOCYTES % 6.4 % (2.0-8.0); NEUTROPHILS % 80.8 % (40.0-76.0); PLATELET 85 x1000/uL (130-400); RED BLOOD CELL COUNT 3.34 mill/uL (4.7-6.1); RED CELL DISTRIBUTION WIDTH 24.6 % (11.6-14.6)
[2024-10-12 05:40] LABS: ADD RBC MORPHOLOGY YES
[2024-10-12 05:46] LABS: INR 1.8
[2024-10-12 05:52] LABS: CREATININE 0.9 mg/dL (0.6-1.3); UREA NITROGEN BLOOD 38 mg/dL (9-23)
[2024-10-12 09:31] LABS: PLATELET ESTIMATE DECREASED
[2024-10-12 10:06] LABS: BG BASE EXCESS -1.3 mmol/L (-2.0-3.0); BG CARBOXYHEMOGLOBIN 0.8 % (0.5-1.5); BG DEOXYHEMOGLOBIN 3.1 % (0.0-5.0); BG FRACTION INSPIRED OXYGEN 50; BG HCO3 ACT 25.1 mmol/L (21.0-28.0); BG METHEMOGLOBIN 0.3 % (0.5-1.5); BG OXYGEN SATURATION 96.9 % (94.0-98.0); BG OXYHEMOGLOBIN 95.8 % (94.0-98.0); BG PCO2 50.0 mmHg (35.0-48.0); BG PEEP (cmH2O) 10.0 cmH2O; BG PH 7.318 (7.350-7.450); BG PIP 20.0 cmH2O; BG PO2 99.3 mmHg (83.0-108.0); BG SAMPLE SITE RIGHT RADIAL; BG TOTAL HEMOGLOBIN 9.7 g/dL (13.5-17.5); BG TOTAL RESPIRATORY RATE 28 b/min; BG VENT MODE VENT - P/C; BG VENT RATE 26.0 set
[2024-10-12 13:11] LABS: INR 1.6
[2024-10-12] MEDS: VANCOMYCIN 1.5GM/250ML 250 ML IV SCH (17:04)
[2024-10-13] VITALS (100 sets, daily range): BP systolic 116–160; BP diastolic 71–98; PULSE 87–116; RESP 14–31; TEMP 36.3–36.7; O2SAT 94–100
[2024-10-13] MEDS: OCTREOTIDE 1,000 MCG in SODIUM CHLORIDE 0.9% 98 ML IV SCH (03:24)
[2024-10-13 05:29] LABS: BASOPHILS % 0.1 % (0.0-2.0); EOSINOPHILS % 0.0 % (0.0-5.0); HEMATOCRIT. 26.2 % (42.0-52.0); HEMOGLOBIN. 8.0 g/dL (14.0-18.0); LYMPHOCYTES % 10.0 % (20.0-50.0); MEAN PLATELET VOLUME 9.2 fl (7.4-10.4); MONOCYTES % 3.0 % (2.0-8.0); NEUTROPHILS % 86.9 % (40.0-76.0); PLATELET 77 x1000/uL (130-400); RED BLOOD CELL COUNT 3.15 mill/uL (4.7-6.1); RED CELL DISTRIBUTION WIDTH 27.2 % (11.6-14.6)
[2024-10-13 05:51] LABS: CREATININE 1.1 mg/dL (0.6-1.3); UREA NITROGEN BLOOD 41 mg/dL (9-23)
[2024-10-13 05:54] LABS: PHOSPHORUS 3.2 mg/dL (2.5-4.9)
[2024-10-13 08:22] LABS: BG BASE EXCESS -2.9 mmol/L (-2.0-3.0); BG CARBOXYHEMOGLOBIN 1.1 % (0.5-1.5); BG DEOXYHEMOGLOBIN 4.5 % (0.0-5.0); BG FRACTION INSPIRED OXYGEN 50; BG HCO3 ACT 23.9 mmol/L (21.0-28.0); BG METHEMOGLOBIN 0.3 % (0.5-1.5); BG OXYGEN SATURATION 95.4 % (94.0-98.0); BG OXYHEMOGLOBIN 94.1 % (94.0-98.0); BG PCO2 51.6 mmHg (35.0-48.0); BG PEEP (cmH2O) 10.0 cmH2O; BG PH 7.284 (7.350-7.450); BG PIP 30.0 cmH2O; BG PO2 87.3 mmHg (83.0-108.0); BG SAMPLE SITE RIGHT BRACHIAL; BG TOTAL HEMOGLOBIN 9.6 g/dL (13.5-17.5); BG VENT MODE VENT - P/C; BG VENT RATE 24.0 set
[2024-10-13] MEDS: SPIRONOLACTONE 25 MG/5 ML ORAL.SUSP NG SCH (10:43)
[2024-10-13] MEDS: QUETIAPINE FUMARATE 50MG TABLET PO NR (21:11)
[2024-10-13] MEDS: DEXTROSE 5% WATER 1,000 ML IV SCH (21:29)
[2024-10-14] VITALS (97 sets, daily range): BP systolic 111–162; BP diastolic 77–134; PULSE 81–104; RESP 12–32; TEMP 36.4–36.9; O2SAT 95–100
[2024-10-14] MEDS: METOCLOPRAMIDE HCL 10MG/2ML VIAL IV SCH (00:16)
[2024-10-14 05:25] LABS: BASOPHILS % 0.0 % (0.0-2.0); EOSINOPHILS % 0.0 % (0.0-5.0); HEMATOCRIT. 26.3 % (42.0-52.0); HEMOGLOBIN. 8.1 g/dL (14.0-18.0); LYMPHOCYTES % 9.5 % (20.0-50.0); MEAN PLATELET VOLUME 9.5 fl (7.4-10.4); MONOCYTES % 4.0 % (2.0-8.0); NEUTROPHILS % 86.5 % (40.0-76.0); PLATELET 77 x1000/uL (130-400); RED BLOOD CELL COUNT 3.17 mill/uL (4.7-6.1); RED CELL DISTRIBUTION WIDTH 28.0 % (11.6-14.6)
[2024-10-14 05:35] LABS: CREATININE 1.1 mg/dL (0.6-1.3); UREA NITROGEN BLOOD 43 mg/dL (9-23)
[2024-10-14 08:40] LABS: BG BASE EXCESS 0.1 mmol/L (-2.0-3.0); BG CARBOXYHEMOGLOBIN 1.5 % (0.5-1.5); BG DEOXYHEMOGLOBIN 3.4 % (0.0-5.0); BG FRACTION INSPIRED OXYGEN 40; BG HCO3 ACT 26.5 mmol/L (21.0-28.0); BG METHEMOGLOBIN 0.3 % (0.5-1.5); BG OXYGEN SATURATION 96.5 % (94.0-98.0); BG OXYHEMOGLOBIN 94.8 % (94.0-98.0); BG PCO2 51.1 mmHg (35.0-48.0); BG PEEP (cmH2O) 10.0 cmH2O; BG PH 7.333 (7.350-7.450); BG PO2 95.8 mmHg (83.0-108.0); BG SAMPLE SITE RIGHT RADIAL; BG TOTAL HEMOGLOBIN 11.0 g/dL (13.5-17.5); BG VENT MODE VENT - AC/PC; BG VENT RATE 28.0 set
[2024-10-14] MEDS: METHYLPREDNISOLONE SOD SUCC 40MG/ML (ACT-O-VIAL) IV SCH (11:45)
[2024-10-14] MEDS: IPRATROPIUM/ALBUTEROL 0.5-3(2.5)MG/3ML NEB HHN PRN (12:14)
[2024-10-14 13:16] LABS: BG BASE EXCESS 2.0 mmol/L (-2.0-3.0); BG CARBOXYHEMOGLOBIN 1.3 % (0.5-1.5); BG DEOXYHEMOGLOBIN 5.6 % (0.0-5.0); BG FRACTION INSPIRED OXYGEN 40; BG HCO3 ACT 28.3 mmol/L (21.0-28.0); BG METHEMOGLOBIN 0.1 % (0.5-1.5); BG OXYGEN SATURATION 94.3 % (94.0-98.0); BG OXYHEMOGLOBIN 93.0 % (94.0-98.0); BG PCO2 53.1 mmHg (35.0-48.0); BG PEEP (cmH2O) 5.0 cmH2O; BG PH 7.344 (7.350-7.450); BG PO2 77.6 mmHg (83.0-108.0); BG SAMPLE SITE RIGHT RADIAL; BG TOTAL HEMOGLOBIN 9.6 g/dL (13.5-17.5); BG VENT MODE VENT - AC/PC; BG VENT RATE 28.0 set
[2024-10-14] MEDS: IPRATROPIUM/ALBUTEROL 0.5-3(2.5)MG/3ML NEB HHN SCH (14:23)
[2024-10-14] MEDS ORDERED: FENTANYL 2500MCG/250ML PMX 250 ML IV ONE (19:30)
[2024-10-14] MEDS ORDERED: FENTANYL CITRATE 2,500 MCG in SODIUM CHLORIDE 0.9% 200 ML IV PRN (19:30)
[2024-10-14] MEDS: FENTANYL CITRATE 2,500 MCG in SODIUM CHLORIDE 0.9% 200 ML IV PRN (23:03)
[2024-10-15] VITALS (66 sets, daily range): BP systolic 77–157; BP diastolic 50–95; PULSE 69–102; RESP 10–28; TEMP 36.4–36.9; O2SAT 93–100
[2024-10-15] MEDS: DEXMEDETOMIDINE 400 MCG/100 ML 100 ML IV PRN (08:40)
[2024-10-15 09:08] LABS: BG BASE EXCESS -1.7 mmol/L (-2.0-3.0); BG CARBOXYHEMOGLOBIN 1.3 % (0.5-1.5); BG DEOXYHEMOGLOBIN 6.6 % (0.0-5.0); BG FRACTION INSPIRED OXYGEN 40; BG HCO3 ACT 23.7 mmol/L (21.0-28.0); BG METHEMOGLOBIN 0.3 % (0.5-1.5); BG OXYGEN SATURATION 93.3 % (94.0-98.0); BG OXYHEMOGLOBIN 91.8 % (94.0-98.0); BG PCO2 42.4 mmHg (35.0-48.0); BG PEEP (cmH2O) 5.0 cmH2O; BG PH 7.365 (7.350-7.450); BG PIP 20.0 cmH2O; BG PO2 73.6 mmHg (83.0-108.0); BG SAMPLE SITE LEFT RADIAL; BG TOTAL HEMOGLOBIN 12.3 g/dL (13.5-17.5); BG TOTAL RESPIRATORY RATE 29 b/min; BG VENT MODE VENT - P/C; BG VENT RATE 28.0 set
[2024-10-15 12:32] LABS: BG BASE EXCESS 1.3 mmol/L (-2.0-3.0); BG CARBOXYHEMOGLOBIN 1.0 % (0.5-1.5); BG DEOXYHEMOGLOBIN 8.2 % (0.0-5.0); BG FRACTION INSPIRED OXYGEN 40; BG HCO3 ACT 27.2 mmol/L (21.0-28.0); BG METHEMOGLOBIN 0.3 % (0.5-1.5); BG OXYGEN SATURATION 91.7 % (94.0-98.0); BG OXYHEMOGLOBIN 90.5 % (94.0-98.0); BG PCO2 49.3 mmHg (35.0-48.0); BG PEEP (cmH2O) 5.0 cmH2O; BG PH 7.359 (7.350-7.450); BG PO2 70.2 mmHg (83.0-108.0); BG SAMPLE SITE LEFT RADIAL; BG TIDAL VOLUME(mL) 500.0 mL; BG TOTAL HEMOGLOBIN 8.9 g/dL (13.5-17.5); BG TOTAL RESPIRATORY RATE 19 b/min; BG VENT MODE VENT - SIMV; BG VENT RATE 10.0 set
[2024-10-15 12:55] LABS: PLATELET 60 x1000/uL (130-400); RED BLOOD CELL COUNT 2.92 mill/uL (4.7-6.1); RED CELL DISTRIBUTION WIDTH 29.2 % (11.6-14.6)
[2024-10-15 12:59] LABS: CREATININE 0.9 mg/dL (0.6-1.3); UREA NITROGEN BLOOD 35 mg/dL (9-23)
[2024-10-15] MEDS: POLYVINYL ALCOHOL OPHTH DROPS 15ML BOTHEYE SCH (13:53)
[2024-10-16] VITALS (65 sets, daily range): BP systolic 132–171; BP diastolic 76–113; PULSE 88–109; RESP 10–22; TEMP 36.4–37.1; O2SAT 93–100
[2024-10-16 05:25] LABS: HEMATOCRIT. 27.8 % (42.0-52.0); HEMOGLOBIN. 8.8 g/dL (14.0-18.0); MEAN PLATELET VOLUME 10.0 fl (7.4-10.4); PLATELET 68 x1000/uL (130-400); RED BLOOD CELL COUNT 3.33 mill/uL (4.7-6.1); RED CELL DISTRIBUTION WIDTH 29.9 % (11.6-14.6)
[2024-10-16 05:42] LABS: CREATININE 0.8 mg/dL (0.6-1.3); UREA NITROGEN BLOOD 31 mg/dL (9-23)
[2024-10-16 09:25] LABS: BG BASE EXCESS 2.7 mmol/L (-2.0-3.0); BG CARBOXYHEMOGLOBIN 1.1 % (0.5-1.5); BG DEOXYHEMOGLOBIN 3.7 % (0.0-5.0); BG FRACTION INSPIRED OXYGEN 40; BG HCO3 ACT 26.7 mmol/L (21.0-28.0); BG METHEMOGLOBIN 0.3 % (0.5-1.5); BG OXYGEN SATURATION 96.2 % (94.0-98.0); BG OXYHEMOGLOBIN 94.9 % (94.0-98.0); BG PCO2 38.7 mmHg (35.0-48.0); BG PEEP (cmH2O) 5.0 cmH2O; BG PH 7.456 (7.350-7.450); BG PO2 83.9 mmHg (83.0-108.0); BG SAMPLE SITE RIGHT RADIAL; BG TIDAL VOLUME(mL) 500.0 mL; BG TOTAL HEMOGLOBIN 9.9 g/dL (13.5-17.5); BG TOTAL RESPIRATORY RATE 19 b/min; BG VENT MODE VENT - SIMV; BG VENT RATE 10.0 set
[2024-10-16 10:45] LABS: ASPARTATE AMINOTRANSFERASE 103 IU/L (<34); BILIRUBIN DIRECT 1.2 mg/dL (<=3.0); BILIRUBIN TOTAL 2.2 mg/dL (0.1-1.0); PROTEIN TOTAL 6.0 g/dL (6.0-8.3)
[2024-10-16 10:51] LABS: INR 2.8
[2024-10-16 10:57] LABS: BAND% 3.0 % (1.0-6.0); LYMPHOCYTES % MANUAL 3.0 % (20.0-50.0); NEUTROPHILS % MANUAL 94.0 % (45.0-75.0)
[2024-10-16 10:58] LABS: PLATELET ESTIMATE DECREASED
[2024-10-16] MEDS: RIFAXIMIN 550 MG TABLET PO SCH (20:45)
[2024-10-16] MEDS ORDERED: MIDODRINE HCL 5MG TABLET PO SCH (22:00)
[2024-10-16] MEDS ORDERED: HYDROMORPHONE HCL/PF 1MG/ML INJ IV PRN (23:45)
[2024-10-16] MEDS: NIFEDIPINE XL 90MG TAB PO SCH (23:50)
[2024-10-17] VITALS (44 sets, daily range): BP systolic 86–124; BP diastolic 51–82; PULSE 93–115; RESP 17–25; TEMP 36.8–37.7; O2SAT 96–99
[2024-10-17] MEDS ORDERED: LISINOPRIL 20MG TABLET PO SCH
[2024-10-17 10:13] LABS: HEMATOCRIT. 27.1 % (42.0-52.0); HEMOGLOBIN. 8.4 g/dL (14.0-18.0); MEAN PLATELET VOLUME 10.5 fl (7.4-10.4); PLATELET 68 x1000/uL (130-400); RED BLOOD CELL COUNT 3.17 mill/uL (4.7-6.1); RED CELL DISTRIBUTION WIDTH 32.2 % (11.6-14.6)
[2024-10-17 10:36] LABS: CREATININE 0.9 mg/dL (0.6-1.3)
[2024-10-17 10:37] LABS: UREA NITROGEN BLOOD 32 mg/dL (9-23)
[2024-10-17 10:47] LABS: INR 1.9
[2024-10-17 14:20] LABS: LYMPHOCYTES % MANUAL 2.0 % (20.0-50.0); MONOCYTES % MANUAL 2.0 % (2.0-8.0); NEUTROPHILS % MANUAL 96.0 % (45.0-75.0); PLATELET ESTIMATE DECREASED
[2024-10-18] VITALS (37 sets, daily range): BP systolic 71–130; BP diastolic 54–86; PULSE 84–146; RESP 21–46; TEMP 36.6–37.3; O2SAT 80–99
[2024-10-18] MEDS: MIDODRINE HCL 5MG TABLET PO PRN (05:31)
[2024-10-18 05:55] LABS: CREATININE 0.9 mg/dL (0.6-1.3); UREA NITROGEN BLOOD 27 mg/dL (9-23)
[2024-10-18 07:38] LABS: BASOPHILS % 1.5 % (0.0-2.0); EOSINOPHILS % 0.0 % (0.0-5.0); HEMATOCRIT. 29.5 % (42.0-52.0); HEMOGLOBIN. 9.2 g/dL (14.0-18.0); LYMPHOCYTES % 8.2 % (20.0-50.0); MEAN PLATELET VOLUME 9.9 fl (7.4-10.4); MONOCYTES % 4.0 % (2.0-8.0); NEUTROPHILS % 86.3 % (40.0-76.0); PLATELET 58 x1000/uL (130-400); RED BLOOD CELL COUNT 3.45 mill/uL (4.7-6.1); RED CELL DISTRIBUTION WIDTH 34.1 % (11.6-14.6)
[2024-10-18 07:55] LABS: ASPARTATE AMINOTRANSFERASE 53 IU/L (<34); BILIRUBIN DIRECT 1.2 mg/dL (<=3.0)
[2024-10-18 07:56] LABS: BILIRUBIN TOTAL 2.5 mg/dL (0.1-1.0); PROTEIN TOTAL 6.3 g/dL (6.0-8.3)
[2024-10-18] MEDS: METHYLPREDNISOLONE SOD SUCC 40MG/ML (ACT-O-VIAL) IV SCH (09:30)
[2024-10-18 13:00] LABS: BG BASE EXCESS 2.5 mmol/L (-2.0-3.0); BG CARBOXYHEMOGLOBIN 1.5 % (0.5-1.5); BG DEOXYHEMOGLOBIN 6.6 % (0.0-5.0); BG FRACTION INSPIRED OXYGEN 60; BG HCO3 ACT 26.0 mmol/L (21.0-28.0); BG METHEMOGLOBIN 0.3 % (0.5-1.5); BG OXYGEN SATURATION 93.3 % (94.0-98.0); BG OXYHEMOGLOBIN 91.6 % (94.0-98.0); BG PCO2 36.1 mmHg (35.0-48.0); BG PEEP (cmH2O) 5.0 cmH2O; BG PH 7.476 (7.350-7.450); BG PO2 66.0 mmHg (83.0-108.0); BG SAMPLE SITE RIGHT RADIAL; BG TIDAL VOLUME(mL) 500.0 mL; BG TOTAL HEMOGLOBIN 10.3 g/dL (13.5-17.5); BG VENT MODE VENT - SIMV; BG VENT RATE 10.0 set
[2024-10-18] MEDS: CHLORTHALIDONE 25MG TABLET PO SCH (14:23)
[2024-10-19] VITALS (51 sets, daily range): BP systolic 99–125; BP diastolic 68–82; PULSE 99–119; RESP 20–34; TEMP 36.8–37.3; O2SAT 92–100
[2024-10-19 05:47] LABS: BASOPHILS % 0.0 % (0.0-2.0); EOSINOPHILS % 0.1 % (0.0-5.0); HEMATOCRIT. 27.9 % (42.0-52.0); HEMOGLOBIN. 8.6 g/dL (14.0-18.0); LYMPHOCYTES % 11.7 % (20.0-50.0); MEAN PLATELET VOLUME 11.8 fl (7.4-10.4); MONOCYTES % 3.7 % (2.0-8.0); NEUTROPHILS % 84.5 % (40.0-76.0); RED BLOOD CELL COUNT 3.17 mill/uL (4.7-6.1); RED CELL DISTRIBUTION WIDTH 34.5 % (11.6-14.6)
[2024-10-19 05:53] LABS: PLATELET 45 x1000/uL (130-400)
[2024-10-19 05:57] LABS: CREATININE 0.8 mg/dL (0.6-1.3)
[2024-10-19 05:58] LABS: UREA NITROGEN BLOOD 30 mg/dL (9-23)
[2024-10-19 05:59] LABS: ASPARTATE AMINOTRANSFERASE 56 IU/L (<34); BILIRUBIN DIRECT 1.7 mg/dL (<=3.0)
[2024-10-19 06:00] LABS: BILIRUBIN TOTAL 2.9 mg/dL (0.1-1.0); PROTEIN TOTAL 5.4 g/dL (6.0-8.3)
[2024-10-19] MEDS: DEXT 5%/0.45% NACL 1000ML 1,000 ML IV SCH (07:01)
[2024-10-19 08:58] LABS: INR 1.7
[2024-10-19] MEDS: INSULIN GLARGINE 100 UNITS/ML SUBCUT SCH ×2 (09:34→22:10)
[2024-10-19] MEDS: DEXTROSE 5% WATER 1,000 ML IV SCH (10:34)
[2024-10-19 10:42] LABS: BG BASE EXCESS 2.1 mmol/L (-2.0-3.0); BG CARBOXYHEMOGLOBIN 1.2 % (0.5-1.5); BG DEOXYHEMOGLOBIN 8.5 % (0.0-5.0); BG FRACTION INSPIRED OXYGEN 40; BG HCO3 ACT 25.1 mmol/L (21.0-28.0); BG METHEMOGLOBIN 0.3 % (0.5-1.5); BG OXYGEN SATURATION 91.4 % (94.0-98.0); BG OXYHEMOGLOBIN 90.0 % (94.0-98.0); BG PCO2 33.9 mmHg (35.0-48.0); BG PEEP (cmH2O) 5.0 cmH2O; BG PH 7.488 (7.350-7.450); BG PO2 63.7 mmHg (83.0-108.0); BG SAMPLE SITE RIGHT RADIAL; BG TOTAL HEMOGLOBIN 11.7 g/dL (13.5-17.5); BG VENT MODE VENT - P/C; BG VENT RATE 22.0 set
[2024-10-19] MEDS: PREDNISONE 10MG TABLET PO SCH (18:22)
[2024-10-20] VITALS (62 sets, daily range): BP systolic 89–129; BP diastolic 55–79; PULSE 90–107; RESP 13–32; TEMP 36.7–37.2; O2SAT 91–98
[2024-10-20 08:29] LABS: BG BASE EXCESS 4.2 mmol/L (-2.0-3.0); BG CARBOXYHEMOGLOBIN 0.6 % (0.5-1.5); BG DEOXYHEMOGLOBIN 8.5 % (0.0-5.0); BG FRACTION INSPIRED OXYGEN 40; BG HCO3 ACT 28.2 mmol/L (21.0-28.0); BG METHEMOGLOBIN 0.3 % (0.5-1.5); BG OXYGEN SATURATION 91.4 % (94.0-98.0); BG OXYHEMOGLOBIN 90.6 % (94.0-98.0); BG PCO2 39.9 mmHg (35.0-48.0); BG PEEP (cmH2O) 5.0 cmH2O; BG PH 7.467 (7.350-7.450); BG PIP 15.0 cmH2O; BG PO2 63.4 mmHg (83.0-108.0); BG SAMPLE SITE RIGHT RADIAL; BG TOTAL HEMOGLOBIN 10.9 g/dL (13.5-17.5); BG TOTAL RESPIRATORY RATE 25 b/min; BG VENT MODE VENT - P/C; BG VENT RATE 22.0 set
[2024-10-20 11:34] LABS: BASOPHILS % 0.6 % (0.0-2.0); EOSINOPHILS % 1.2 % (0.0-5.0); HEMATOCRIT. 30.6 % (42.0-52.0); HEMOGLOBIN. 9.3 g/dL (14.0-18.0); LYMPHOCYTES % 11.7 % (20.0-50.0); MEAN PLATELET VOLUME 11.5 fl (7.4-10.4); MONOCYTES % 4.3 % (2.0-8.0); NEUTROPHILS % 82.2 % (40.0-76.0); RED BLOOD CELL COUNT 3.42 mill/uL (4.7-6.1); RED CELL DISTRIBUTION WIDTH 34.9 % (11.6-14.6)
[2024-10-20 11:42] LABS: INR 1.7
[2024-10-20 11:58] LABS: ASPARTATE AMINOTRANSFERASE 25 IU/L (<34)
[2024-10-20 11:59] LABS: CREATININE 0.9 mg/dL (0.6-1.3)
[2024-10-20 12:00] LABS: UREA NITROGEN BLOOD 29 mg/dL (9-23)
[2024-10-20 12:02] LABS: BILIRUBIN TOTAL 2.4 mg/dL (0.1-1.0); PROTEIN TOTAL 5.6 g/dL (6.0-8.3)
[2024-10-20] MEDS: POTASSIUM CHLORIDE 20MEQ/PACKET PO NR (14:17)
[2024-10-21] VITALS (63 sets, daily range): BP systolic 86–148; BP diastolic 62–109; PULSE 72–101; RESP 11–33; TEMP 36.6–36.7; O2SAT 95–99
[2024-10-21 06:07] LABS: BASOPHILS % 0.1 % (0.0-2.0); EOSINOPHILS % 3.4 % (0.0-5.0); HEMATOCRIT. 28.4 % (42.0-52.0); HEMOGLOBIN. 8.9 g/dL (14.0-18.0); LYMPHOCYTES % 18.0 % (20.0-50.0); MEAN PLATELET VOLUME 10.7 fl (7.4-10.4); MONOCYTES % 4.7 % (2.0-8.0); NEUTROPHILS % 73.8 % (40.0-76.0); RED BLOOD CELL COUNT 3.18 mill/uL (4.7-6.1); RED CELL DISTRIBUTION WIDTH 34.8 % (11.6-14.6)
[2024-10-21 06:15] LABS: CREATININE 0.8 mg/dL (0.6-1.3); UREA NITROGEN BLOOD 28 mg/dL (9-23)
[2024-10-21 06:17] LABS: ASPARTATE AMINOTRANSFERASE 27 IU/L (<34); BILIRUBIN TOTAL 2.4 mg/dL (0.1-1.0); PROTEIN TOTAL 5.1 g/dL (6.0-8.3)
[2024-10-21 06:26] LABS: INR 1.7
[2024-10-21 06:58] LABS: PLATELET 27 x1000/uL (130-400)
[2024-10-21] MEDS: POTASSIUM CHLORIDE 20MEQ/PACKET PO NR (09:25)
[2024-10-21 10:32] LABS: PHOSPHORUS 2.0 mg/dL (2.5-4.9)
[2024-10-21] MEDS: LACTULOSE 20G/30ML UDC NG SCH (13:40)
[2024-10-21] MEDS: PHYTONADIONE 10 MG in DEXTROSE 5% WATER 49 ML IV NR (17:00)
[2024-10-22] VITALS (92 sets, daily range): BP systolic 68–125; BP diastolic 48–85; PULSE 74–94; RESP 11–26; TEMP 36.1–36.8; O2SAT 90–100
[2024-10-22 05:43] LABS: BASOPHILS % 0.3 % (0.0-2.0); EOSINOPHILS % 0.6 % (0.0-5.0); HEMATOCRIT. 29.6 % (42.0-52.0); HEMOGLOBIN. 8.9 g/dL (14.0-18.0); LYMPHOCYTES % 13.6 % (20.0-50.0); MEAN PLATELET VOLUME 11.8 fl (7.4-10.4); MONOCYTES % 4.9 % (2.0-8.0); NEUTROPHILS % 80.6 % (40.0-76.0); RED BLOOD CELL COUNT 3.18 mill/uL (4.7-6.1); RED CELL DISTRIBUTION WIDTH 34.5 % (11.6-14.6)
[2024-10-22 06:00] LABS: CREATININE 0.7 mg/dL (0.6-1.3)
[2024-10-22 06:01] LABS: INR 1.6; UREA NITROGEN BLOOD 24 mg/dL (9-23)
[2024-10-22 06:02] LABS: ASPARTATE AMINOTRANSFERASE 24 IU/L (<34)
[2024-10-22 06:03] LABS: BILIRUBIN TOTAL 2.7 mg/dL (0.1-1.0); PROTEIN TOTAL 5.1 g/dL (6.0-8.3)
[2024-10-22] MEDS: POTASSIUM CHLORIDE 20MEQ/PACKET PO SCH (10:01)
[2024-10-22 10:02] LABS: BG BASE EXCESS 0.9 mmol/L (-2.0-3.0); BG CARBOXYHEMOGLOBIN 1.2 % (0.5-1.5); BG DEOXYHEMOGLOBIN 3.7 % (0.0-5.0); BG FRACTION INSPIRED OXYGEN 40; BG HCO3 ACT 25.6 mmol/L (21.0-28.0); BG METHEMOGLOBIN 0.3 % (0.5-1.5); BG OXYGEN SATURATION 96.2 % (94.0-98.0); BG OXYHEMOGLOBIN 94.8 % (94.0-98.0); BG PCO2 41.1 mmHg (35.0-48.0); BG PEEP (cmH2O) 5.0 cmH2O; BG PH 7.412 (7.350-7.450); BG PO2 89.2 mmHg (83.0-108.0); BG SAMPLE SITE RIGHT RADIAL; BG TIDAL VOLUME(mL) 500.0 mL; BG TOTAL HEMOGLOBIN 9.8 g/dL (13.5-17.5); BG VENT MODE VENT - PRVC; BG VENT RATE 18.0 set
[2024-10-22 11:02] LABS: PLATELET 37 x1000/uL (130-400)
[2024-10-22 11:49] LABS: BG BASE EXCESS 0.8 mmol/L (-2.0-3.0); BG CARBOXYHEMOGLOBIN 0.8 % (0.5-1.5); BG CPAP (cmH2O) 5.0 cm(H2O); BG DEOXYHEMOGLOBIN 3.4 % (0.0-5.0); BG FRACTION INSPIRED OXYGEN 40; BG HCO3 ACT 24.7 mmol/L (21.0-28.0); BG METHEMOGLOBIN 0.3 % (0.5-1.5); BG OXYGEN SATURATION 96.6 % (94.0-98.0); BG OXYHEMOGLOBIN 95.5 % (94.0-98.0); BG PCO2 36.4 mmHg (35.0-48.0); BG PEEP (cmH2O) 5.0 cmH2O; BG PH 7.449 (7.350-7.450); BG PO2 87.3 mmHg (83.0-108.0); BG SAMPLE SITE RIGHT RADIAL; BG TOTAL HEMOGLOBIN 10.2 g/dL (13.5-17.5); BG VENT MODE VENT - CPAP
[2024-10-22 13:59] LABS: PLATELET 47 x1000/uL (130-400)
[2024-10-23] VITALS (89 sets, daily range): BP systolic 99–136; BP diastolic 67–84; PULSE 76–92; RESP 17–28; TEMP 36.1–36.7; O2SAT 90–100
[2024-10-23] MEDS: MIDODRINE HCL 5MG TABLET PO SCH (01:20)
[2024-10-23 11:07] LABS: BASOPHILS % 0.3 % (0.0-2.0); EOSINOPHILS % 4.1 % (0.0-5.0); LYMPHOCYTES % 18.6 % (20.0-50.0); MONOCYTES % 4.5 % (2.0-8.0); NEUTROPHILS % 72.5 % (40.0-76.0); RED BLOOD CELL COUNT 3.79 mill/uL (4.7-6.1); RED CELL DISTRIBUTION WIDTH 33.6 % (11.6-14.6)
[2024-10-23 11:24] LABS: CREATININE 0.7 mg/dL (0.6-1.3); UREA NITROGEN BLOOD 18 mg/dL (9-23)
[2024-10-23] MEDS ORDERED: POTASSIUM CHLORIDE 40 MEQ in DEXT 5% WATER 230 ML IV ONE (12:15)
[2024-10-23 12:35] LABS: HEMOGLOBIN. 10.4 g/dL (14.0-18.0)
[2024-10-23 12:36] LABS: HEMATOCRIT. 33.3 % (42.0-52.0)
[2024-10-23 12:38] LABS: ADD RBC MORPHOLOGY NO
[2024-10-23 13:40] LABS: PLATELET 56 x1000/uL (130-400)
[2024-10-23] MEDS: KCL 20MEQ/100ML X 2 FOR TOTAL KCL 40MEQ/200ML IV SCH (13:57)
[2024-10-23] MEDS: IPRATROPIUM/ALBUTEROL 0.5-3(2.5)MG/3ML NEB HHN SCH (20:24)
[2024-10-24] VITALS (104 sets, daily range): BP systolic 80–120; BP diastolic 59–87; PULSE 91–123; RESP 16–38; TEMP 36.3–36.5; O2SAT 85–100
[2024-10-24 12:00] LABS: CREATININE 0.5 mg/dL (0.6-1.3); UREA NITROGEN BLOOD 13 mg/dL (9-23)
[2024-10-24] MEDS: LIDOCAINE HCL 1% 10 MG/ML 10ML VIAL ONE (12:25)
[2024-10-24 15:25] LABS: BASOPHILS % 0.5 % (0.0-2.0); EOSINOPHILS % 2.0 % (0.0-5.0); HEMATOCRIT. 29.7 % (42.0-52.0); HEMOGLOBIN. 9.7 g/dL (14.0-18.0); LYMPHOCYTES % 19.1 % (20.0-50.0); MEAN PLATELET VOLUME 10.5 fl (7.4-10.4); MONOCYTES % 2.9 % (2.0-8.0); NEUTROPHILS % 75.5 % (40.0-76.0); RED BLOOD CELL COUNT 3.41 mill/uL (4.7-6.1); RED CELL DISTRIBUTION WIDTH 34.4 % (11.6-14.6)
[2024-10-24 15:35] LABS: PLATELET 39 x1000/uL (130-400)
[2024-10-24] MEDS: MIDODRINE HCL 5MG TABLET PO SCH (17:23)
[2024-10-25] VITALS (99 sets, daily range): BP systolic 80–120; BP diastolic 55–97; PULSE 109–132; RESP 14–39; TEMP 36.2–37.3; O2SAT 49–96
[2024-10-25] MEDS: IPRATROPIUM/ALBUTEROL 0.5-3(2.5)MG/3ML NEB HHN SCH (01:09)
[2024-10-25 06:28] LABS: CREATININE 0.5 mg/dL (0.6-1.3); UREA NITROGEN BLOOD 14 mg/dL (9-23)
[2024-10-25 07:07] LABS: BASOPHILS % 0.9 % (0.0-2.0); EOSINOPHILS % 1.1 % (0.0-5.0); HEMATOCRIT. 30.0 % (42.0-52.0); HEMOGLOBIN. 9.6 g/dL (14.0-18.0); LYMPHOCYTES % 14.8 % (20.0-50.0); MEAN PLATELET VOLUME 10.4 fl (7.4-10.4); MONOCYTES % 2.8 % (2.0-8.0); NEUTROPHILS % 80.4 % (40.0-76.0); RED BLOOD CELL COUNT 3.34 mill/uL (4.7-6.1); RED CELL DISTRIBUTION WIDTH 34.3 % (11.6-14.6)
[2024-10-25] MEDS: POTASSIUM CHLORIDE 20MEQ/PACKET PO SCH (09:13)
[2024-10-25 11:20] LABS: PLATELET 36 x1000/uL (130-400)
[2024-10-25] MEDS: IPRATROPIUM/ALBUTEROL 0.5-3(2.5)MG/3ML NEB HHN PRN (14:45)
[2024-10-25] MEDS ORDERED: CEFEPIME 2GM IN DEXT 5% 100ML IV SCH (16:30)
[2024-10-25] MEDS: CEFEPIME 2GM/100ML 100 ML IV SCH (17:54)
[2024-10-25] MEDS: MORPHINE SULFATE 2 MG/ML INJ (NOT FOR IM USE) IV NR (17:58)
[2024-10-25] MEDS: VANCOMYCIN 1.5GM PMX (XELLIA) 250 ML IV SCH (20:21)
[2024-10-26] VITALS (38 sets, daily range): BP systolic 46–106; BP diastolic 27–75; PULSE 32–124; RESP 0–27; TEMP 36.6; O2SAT 40–79
[2024-10-26] MEDS: HYDROCODONE/ACETAMINOPHEN 5/325MG TABLET PO PRN (00:50)
[2024-10-26] MEDS: ONDANSETRON HCL 4MG/2ML INJ IV PRN (01:02)
[2024-10-26] MEDS: DEXTROSE 50% WATER 50ML SYRINGE IV PRN (05:15)
[2024-10-26 06:28] LABS: CREATININE 1.0 mg/dL (0.6-1.3); UREA NITROGEN BLOOD 22 mg/dL (9-23)
[2024-10-26 06:52] LABS: BASOPHILS % 0.4 % (0.0-2.0); EOSINOPHILS % 8.0 % (0.0-5.0); HEMATOCRIT. 31.4 % (42.0-52.0); HEMOGLOBIN. 9.6 g/dL (14.0-18.0); LYMPHOCYTES % 15.7 % (20.0-50.0); MONOCYTES % 2.0 % (2.0-8.0); NEUTROPHILS % 73.9 % (40.0-76.0); RED BLOOD CELL COUNT 3.32 mill/uL (4.7-6.1); RED CELL DISTRIBUTION WIDTH 34.8 % (11.6-14.6)
[2024-10-26 09:04] LABS: PLATELET 56 x1000/uL (130-400)
[2024-10-26] MEDS ORDERED: VANCOMYCIN 1.25GM/250ML IV SCH (21:00)
== END 2024-10-26 10:00 | DRG 870 ==
LOC: ER 15:19 → EDBEDREQ 18:27 → EDBEDREQTM 18:27 → ENRESERV 19:06 → 5WST 21:33 → 5EST 10-01 00:30 → MICUSO 10-04 02:11
PROVIDERS: ADMIT Internal Medicine; ATTEND Internal Medicine
PROC: 5A09357 Assistance with Respiratory Ventilation, Less than 24 Consecutive Hours, Continuous Positive Airway Pressure (ICD-10-PCS; 2024-10-01)
PROC: 0W9G3ZZ Drainage of Peritoneal Cavity, Percutaneous Approach (ICD-10-PCS; 2024-10-01)
PROC: 5A09357 Assistance with Respiratory Ventilation, Less than 24 Consecutive Hours, Continuous Positive Airway Pressure (ICD-10-PCS; 2024-10-03)
PROC: 5A1955Z Respiratory Ventilation, Greater than 96 Consecutive Hours (ICD-10-PCS; principal; 2024-10-04)
PROC: 0BH17EZ Insertion of Endotracheal Airway into Trachea, Via Natural or Artificial Opening (ICD-10-PCS; 2024-10-04)
PROC: 30233K1 Transfusion of Nonautologous Frozen Plasma into Peripheral Vein, Percutaneous Approach (ICD-10-PCS; 2024-10-04)
PROC: 05HY33Z Insertion of Infusion Device into Upper Vein, Percutaneous Approach (ICD-10-PCS; 2024-10-04)
PROC: B54NZZA Ultrasonography of Left Upper Extremity Veins, Guidance (ICD-10-PCS; 2024-10-04)
PROC: 5A0945A Assistance with Respiratory Ventilation, 24-96 Consecutive Hours, High Flow/Velocity Cannula (ICD-10-PCS; 2024-10-24)
PROC: 02HV33Z Insertion of Infusion Device into Superior Vena Cava, Percutaneous Approach (ICD-10-PCS; 2024-10-24)
PROC: B548ZZA Ultrasonography of Superior Vena Cava, Guidance (ICD-10-PCS; 2024-10-24)
DX: A41.02 Sepsis due to Methicillin resistant Staphylococcus aureus (principal); R65.21 Severe sepsis with septic shock; J96.01 Acute respiratory failure with hypoxia; J18.9 Pneumonia, unspecified organism; G92.8 Other toxic encephalopathy; K76.6 Portal hypertension; D68.9 Coagulation defect, unspecified; E87.1 Hypo-osmolality and hyponatremia; K22.10 Ulcer of esophagus without bleeding; J44.0 Chronic obstructive pulmonary disease with (acute) lower respiratory infection; N17.9 Acute kidney failure, unspecified; E87.0 Hyperosmolality and hypernatremia; I85.00 Esophageal varices without bleeding; E87.20 Acidosis, unspecified; D50.9 Iron deficiency anemia, unspecified; D63.8 Anemia in other chronic diseases classified elsewhere; I11.0 Hypertensive heart disease with heart failure; I50.9 Heart failure, unspecified; F20.9 Schizophrenia, unspecified; K76.82 Hepatic encephalopathy; K52.9 Noninfective gastroenteritis and colitis, unspecified; R16.1 Splenomegaly, not elsewhere classified; Z66 Do not resuscitate; E88.09 Other disorders of plasma-protein metabolism, not elsewhere classified; K31.89 Other diseases of stomach and duodenum; K29.30 Chronic superficial gastritis without bleeding; E53.8 Deficiency of other specified B group vitamins; F32.A Depression, unspecified; F41.9 Anxiety disorder, unspecified; K21.9 Gastro-esophageal reflux disease without esophagitis; K70.31 Alcoholic cirrhosis of liver with ascites; E80.6 Other disorders of bilirubin metabolism; E87.6 Hypokalemia; E11.65 Type 2 diabetes mellitus with hyperglycemia; D69.6 Thrombocytopenia, unspecified; B18.2 Chronic viral hepatitis C; R13.12 Dysphagia, oropharyngeal phase; E78.5 Hyperlipidemia, unspecified; F10.21 Alcohol dependence, in remission; F17.200 Nicotine dependence, unspecified, uncomplicated; Z86.14 Personal history of Methicillin resistant Staphylococcus aureus infection; Z79.4 Long term (current) use of insulin; Z87.11 Personal history of peptic ulcer disease
CPT/HCPCS: 31500; 31720; 36415; 36573; 36600; 49083; 71045; 74018; 74177; 76604; 76705; 80048; 80053; 80076; 80202; 80320; 81003; 82105; 82140; 82270; 82375; 82607; 82728; 82746; 82805; 82962; 83036; 83540; 83550; 83605; 83615; 83735; 83880; 84100; 84145; 84300; 84478; 84484; 85014; 85018; 85025; 85027; 85044; 86850; 86900; 86927; 87070; 87077; 87186; 93306; 93970; 94002; 94003; 94070; 94640; 94660; 94664; 94760; 98960; 99285; A4606; A6261; C1725; J0456; J0690; J0692; J0696; J1200; J1815; J2003; J2270; J2354; J2371; J2405; J2470; J2543; J2704; J2765; J2919; J3010; J3373; J3430; J3480; J3490; J7030; J7050; J7060; J7070; J7121; J7512; P9017; P9041; P9047; Q9967; G0480